=== PATIENT | female | born 1960 | race Two or more races ===

== ENCOUNTER 2019-02-07 03:56 | Inpatient (IN) | payer MEDICARE, OTHER ==
[~2019-02-07] VITALS: Ht 167.6 cm; Wt 108.4 kg
[2019-02-07 08:00] VITALS: BP 121/79
--- NOTE | 2019-02-07 08:35 | NUR ---
MEDIA SERVICES COORDINATOR NOTE: RECEIVED PATIENT FROM [facility] TRANSPORTED BY [facility] WITH 2 HEALTH INFORMATION SPECIALIST AND A RT. PATIENT WAS TRANSPORTED VIA GURNEY AND WAS TRANSFERRED TO THE BED IN ROOM 105. PATIENT WAS AWAKE, ALERT AND ABLE TO EXPRESS HERSELF BY WRITING AND ABLE TO MOUTH WORDS. ON CHRONIC VENT-TRACH DEPENDENT WITH THE VENT SETTING SHILEY XLT #8 AC 12 TV 450 FIO2 40% PEEP 5. PATIENT WAS SATURATING 98-100% WITH CURRENT VENT SETTING AND WAS TOLERATING IT WELL. BEDSIDE REPORT WAS GIVEN BY THE EMT. PATIENT'S PAPERWORK WAS HANDED TO THE ANIMAL CARE PROVIDER. INTRODUCED SELF. ATTACHED PATIENT TO MEDICAL PROGRAM SPECIALIST SR HR= 89. (L) FOREARM 20G IV SITE NOTED PATENT AND INTACT. HOB ELEVATED. BED ALARMED AND LOCKED AT ALL TIMES. PATIENT WAS GIVEN A PEN AND PAPER WITH CLIPBOARD FOR COMMUNICATION. PATIENT WROTE "I NEED PAIN MEDICATION FOR MY MIGRAINE." PATIENT LISTED HER MEDICATION LISTS FROM THE [facility]. PATIENT WAS INFORMED THAT DR. Kentrell PELLETIER WILL BE THE ADMITTING PHYSICIAN FOR HER TODAY AND WILL BE INFORM ABOUT HER HOME MEDICATIONS. COMPLETE BODY ASSESSMENT WAS DONE. SKIN INTACT AND WARM TO TOUCH. AFEBRILE. SHE WAS ABLE TO MOVE FROM SIDE TO SIDE. SHE ALSO USED THE BEDPAN. CALL LIGHT WAS PROVIDED WITHIN REACH AND SHE WAS EDUCATED HOW TO USE IT. NEEDS ANTICIPATED. V/S WAS TAKEN. CALLED AND PAGED EPIC EXCHANGE TO INFORM DR. Kentrell PELLETIER ABOUT THE DIRECT ADMISSION. AWAITING FOR ADMISSION ORDERS. PATIENT WROTE ON THE PAPER THAT SHE DOES NOT HAVE ANY ALLERGY TO MEDICATION OR FOOD. PHARMACIST WAS MADE AWARE OF IT.
--- NOTE | 2019-02-07 08:45 | NUR ---
RN NOTE: PATIENT'S TRACH SITE WAS NOTED WITH A SMALL AMOUNT OF RED BLOOD AND CLOTS. TRACH CARE WAS RENDERED WITH STERILE TECHNIQUE. AND DRESSING CHANGE WAS DONE.
[2019-02-07] MEDS ORDERED: AMLO2.5T2 PO (08:58)
[2019-02-07] MEDS ORDERED: MULT1TAB73 PO (08:58)
[2019-02-07] MEDS ORDERED: INSU100V39 SQ (08:58)
[2019-02-07] MEDS ORDERED: CHLO473M3 MM (08:58)
[2019-02-07] MEDS ORDERED: ASCO500T9 PO (08:58)
[2019-02-07] MEDS ORDERED: ASPI1TAB2 PO (08:58)
[2019-02-07] MEDS ORDERED: METH10TA2 PO (08:58)
[2019-02-07] MEDS ORDERED: ONDA4TAB11 PO (08:58)
[2019-02-07] MEDS ORDERED: CLON0.1T PO (08:58)
[2019-02-07] MEDS ORDERED: IPRA3AMP23 IH (08:58)
[2019-02-07] MEDS ORDERED: PRAZ1CAP2 PO (08:58)
[2019-02-07] MEDS ORDERED: FERR325T23 PO (08:58)
[2019-02-07] MEDS ORDERED: MAG30ORA PO (08:58)
[2019-02-07] MEDS ORDERED: ZOLP10TA2 PO (08:58)
[2019-02-07] MEDS ORDERED: BISA10SU11 RC (08:58)
[2019-02-07] MEDS ORDERED: BUDE0.5A IH (08:58)
[2019-02-07] MEDS ORDERED: NA P133E RC (08:58)
[2019-02-07] MEDS ORDERED: FAMO20TA8 PO (08:58)
[2019-02-07] MEDS ORDERED: SACC250C PO (08:58)
[2019-02-07] MEDS ORDERED: MAGN400O6 PO (08:58)
[2019-02-07] MEDS ORDERED: LOPE2TAB25 PO (08:58)
[2019-02-07] MEDS ORDERED: GUAI100S9 PO (08:58)
[2019-02-07] MEDS ORDERED: TYL2T MC (08:58)
[2019-02-07] MEDS ORDERED: LIDO30CR TP (08:58)
[2019-02-07] MEDS ORDERED: PANT40TA4 PO (08:58)
[2019-02-07] MEDS ORDERED: POLY17PO4 PO (08:58)
[2019-02-07] MEDS ORDERED: HEPA1DIS12 IJ (08:58)
[2019-02-07] MEDS ORDERED: PSYL0.525 PO (08:58)
[2019-02-07] MEDS ORDERED: SIME80TA15 PO (08:58)
[2019-02-07] MEDS ORDERED: HYDR-4384 PO (08:58)
[2019-02-07] MEDS ORDERED: CHOL200026 PO (08:58)
[2019-02-07] MEDS ORDERED: IBUP-1953 PO (08:58)
[2019-02-07 09:00] VITALS: BP 121/79
[2019-02-07] MEDS ORDERED: HYDROCODONE/APAP 5/325MG 1 EACH TABLET PO PRN (10:30)
[2019-02-07] MEDS ORDERED: MAG HYDROX/AL HYDROX/SIMETH 30 ML UDC PO PRN (10:30)
[2019-02-07] MEDS ORDERED: ONDANSETRON HCL/PF 4 MG/2 ML VIAL IVP PRN (10:30)
[2019-02-07 10:38] LABS: ABG BASE EXCESS 4.8 mmol/L; ABG OXYGEN SATURATION 95.8 % (92.0-98.5); ABG PCO2 68.7 mmHg (35.0-45.0); ABG PH 7.297 (7.350-7.450); ABG PO2 84.7 mmHg (75.0-100.0); AaDO2 121.5 mmHg; COHb 0.1 % (0.5-1.5); MetHb 0.5 % (0.0-1.5); O2Hb 95.2 % (94.0-97.0); PEEP,BG 5 cm H2O; SITE, ABG Left Radial; VT, ABG 450 mL
--- NOTE | 2019-02-07 10:45 | NUR ---
RN NOTE: PATIENT'S ABG RESULT WAS REPORTED TO DR. VANEGAS BY RT. DR. GUILHERME PULIDO WITH VENT CHANGES ORDER TO CHANGE TIDAL VOLUME FROM 450 TO 500. ORDER NOTED AND CARRIED OUT. PATIENT AWARE.
[2019-02-07] MEDS ORDERED: INSULIN REGULAR, HUMAN 100 UNIT/ML 3 ML VIAL SQ PRN (11:00)
[2019-02-07] MEDS ORDERED: CLONIDINE HCL 0.1 MG TABLET PO PRN (11:00)
[2019-02-07] MEDS ORDERED: GUAIFENESIN 300 MG/15 ML UDC PO PRN (11:00)
[2019-02-07] MEDS ORDERED: SIMETHICONE 80 MG TAB.CHEW PO PRN (11:00)
[2019-02-07] MEDS ORDERED: NA PHOS,M-B/NA PHOS,DI-BA 1 EA ENEMA RC PRN (11:00)
[2019-02-07] MEDS ORDERED: DEXTROSE 50%-WATER 50 ML DISP.SYRIN IV PRN (11:00)
[2019-02-07] MEDS ORDERED: BISACODYL SUPP (10 MG) 10 MG/SUPP.RECT SUPP.RECT RC PRN (11:00)
[2019-02-07] MEDS: IPRATROPIUM NEB FS 0.5 MG/2.5 ML AMPUL.NEB NEB SCH ×4 (11:02→22:46)
[2019-02-07] MEDS: ALBUTEROL HALF STRENGTH 1.25 MG/3 ML VIAL.NEB NEB SCH ×4 (11:02→22:46)
[2019-02-07] MEDS: IV NS 0.9% 1,000 ML IV PRN (11:02)
[2019-02-07] MEDS: CHLORHEXIDINE GLUCONATE 15 ML UDC MM SCH ×2 (11:12→20:11)
[2019-02-07] MEDS: CHOLECALCIFEROL 1,000 UNIT TABLET (VIT D3) PO SCH (11:12)
[2019-02-07] MEDS: MORPHINE SULFATE INJ 2 MG/ML DISP.SYRIN IV PRN ×2 (11:20→20:13)
[2019-02-07] MEDS ORDERED: LOPERAMIDE HCL (2 MG CAP) 2 MG CAPSULE PO PRN (11:30)
[2019-02-07 11:54] LABS: CALCIUM, SERUM 8.9 mg/dL (8.5-10.1); CREATININE 0.9 mg/dL (0.6-1.3); POTASSIUM 4.6 mmol/L (3.5-5.1)
[2019-02-07 11:56] LABS: BASOPHILS % (AUTO) 0.5 % (0.0-2.0); EOSINOPHILS % (AUTO) 2.1 % (0.0-6.0); HEMATOCRIT 33 % (33-45); HEMOGLOBIN 10.7 g/dL (11.5-14.8); LYMPHOCYTES # (AUTO) 0.9 /CMM (0.8-4.8); LYMPHOCYTES % (AUTO) 10.2 % (20.0-44.0); MEAN CORPUSCULAR HGB CONC 32 g/dl (31.0-36.0); MEAN CORPUSCULAR VOLUME 87 fL (82-100); MONOCYTES # (AUTO) 0.6 /CMM (0.1-1.30); MONOCYTES % (AUTO) 6.4 % (2.0-12.0); NEUTROPHILS # (AUTO) 7.4 /CMM (1.8-8.9); NEUTROPHILS % (AUTO) 80.8 % (43.0-81.0); PLATELET COUNT (AUTO) 216 /CMM (150-450); RED BLOOD CELL COUNT(AUTO) 3.85 MIL/uL (4.0-5.2); WHITE BLOOD COUNT (AUTO) 9.2 K/uL (4.3-11.0)
[2019-02-07 12:00] VITALS: BP 149/93
[2019-02-07] MEDS: BLOOD SUGAR DIAGNOSTIC 1 EACH STRIP IN SCH ×3 (12:24→22:02)
[2019-02-07] MEDS ORDERED: FEE PK DOSING 1 MIN EA MC ONE (12:26)
[2019-02-07] MEDS: CEFEPIME 2 GM in IV NS 0.9% 50 ML IV SCH ×2 (14:13→21:49)
[2019-02-07] MEDS: ALPRAZOLAM 1 MG TABLET PO PRN ×2 (14:36→21:16)
[2019-02-07] MEDS: VANCOMYCIN 1.25 GM in IV D5W 500 ML IV SCH (15:28)
[2019-02-07 16:00] VITALS: BP 140/74
[2019-02-07] MEDS: LACTOBACILLUS RHAMNOSUS GG 1 EACH CAP.SPRINK PO SCH (17:12)
[2019-02-07] MEDS: DOCUSATE SODIUM 100 MG CAPSULE PO SCH (17:12)
[2019-02-07] MEDS: FAMOTIDINE (20 MG) 20 MG TABLET PO SCH (17:12)
--- NOTE | 2019-02-07 17:46 | NUR ---
RN NOTE: REYNA, TRAVEL ATTENDANTS WAS INFORMED THAT ACCORDING TO THE PATIENT, SHE ONLY HAVE HER MOTHER URBANO MATHIS HER PRIMARY FAMILY MEMBER THAT CAN BE REACH REGARDING HER CARE. MOTHER'S TELEPHONE #: [phone]. ACCORDING TO THE PATIENT SHE TEXTED HER MOTHER THAT SHE WAS AT [facility].
--- NOTE | 2019-02-07 19:20 | NUR ---
FLAVIA RN OPENING NOTES RECEIVED PATIENT IN BED, AWAKE, A/OX4, ABLE TO MAKE NEEDS KNOWN VIA HANDWRITING, PAPER AND PENCIL AT BEDSIDE. ON MECHANICAL VENT TRACH SETTINGS ORDERED, TOLERATING WELL, NO SOB OR RESPIRATORY DISTRESS NOTED. RT AT BEDSIDE. PATIENT C/O OF GENERALIZED PAIN, WILL ADMINISTER PRN PAIN MEDICATIONS ORDERED. ON TELE MONITOR SINUS RHYTHM WITH HR 60S. IV ACCES NOTED ON LEFT FA 20G, DRESSING INTACT AND FLUSHES WELL. WITH ONGOING IVF OF NS AT 75CC/HR, NO INFILTRATION NOTED. PATIENT ENCOURAGED TO CALL FOR HELP AND ASSISTANCE. SAFETY MEASURES OBSERVED AND MAINTAINED; HOB ELEVATED, SIDE RAILS UP X2, BED LOW AND LOCKED POSITION, CALL LIGHT WITHIN REACH, BED ALARM ON. WILL CONT TO MONITOR PT CLOSELY.
--- NOTE | 2019-02-07 19:45 | NUR ---
RN NOTE: BEDSIDE REPORT WAS GIVEN TO PM SHIFT NURSE FOR CONTINUITY OF CARE. ENDORSED THAT PENDING EVALUATION FROM DR. SANDOVAL (PAIN MGMT) REGARDING THE PATIENT'S USE OF METHADONE FROM HOME. PATIENT REMAINED QUIET AND COOPERATIVE AT THIS TIME AND WAS NOTED ASLEEP IN HER BED SATURATING 100% ON THE CURRENT VENT SETTING.
[2019-02-07 20:00] VITALS: BP 134/77
[2019-02-07] MEDS: BUDESONIDE RESPULE INH 0.5 MG/2 ML AMPUL.NEB IH SCH (20:11)
[2019-02-07] MEDS: PRAZOSIN HCL 1 MG CAPSULE PO SCH (20:12)
--- NOTE | 2019-02-07 21:45 | NUR ---
FLAVIA RN NOTES PATIENT REQUESTING FOR AMBIEN FOR SLEEP, WILL ADMINISTER PRN MED PER REQUEST.
[2019-02-07] MEDS: ZOLPIDEM TARTRATE 5 MG TABLET PO PRN (21:49)
[2019-02-08] VITALS (7 sets, daily range): BP systolic 93–125; BP diastolic 62–71
[2019-02-08] MEDS: IV NS 0.9% 1,000 ML IV PRN (01:45)
[2019-02-08] MEDS: IPRATROPIUM NEB FS 0.5 MG/2.5 ML AMPUL.NEB NEB SCH ×6 (03:12→23:44)
[2019-02-08] MEDS: ALBUTEROL HALF STRENGTH 1.25 MG/3 ML VIAL.NEB NEB SCH ×6 (03:12→23:44)
--- NOTE | 2019-02-08 03:46 | NUR ---
PATIENT RECEIVED ON TRACH TO VENT WITH SETTINGS OF AC 12, 500 VT, 40%, +5. SUCTIONED WITH LAVAGE FOR MINIMAL, THIN, WHITE SECRETIONS. GIVEN IN-LINE TREATMENTS WITH NO ADVERSE REACTIONS. AMBU BAG AT BEDSIDE. VENT ALARM AUDIBLE AND VISIBLE. Addendum: 02/08/19 at 0347 by ANGELA ANDERSON RT Amended: Links added. Addendum: 02/08/19 at 0500 by ANGELA Garcia SULIT RT PATIENT SUCTIONED FOR MODERATE, THICK, RED SECRETIONS.
[2019-02-08] MEDS: VANCOMYCIN 1.25 GM in IV D5W 500 ML IV SCH ×2 (03:51→16:24)
[2019-02-08] MEDS: MORPHINE SULFATE INJ 2 MG/ML DISP.SYRIN IV PRN ×3 (04:01→17:25)
[2019-02-08] MEDS: ALPRAZOLAM 1 MG TABLET PO PRN ×2 (05:35→14:14)
[2019-02-08] MEDS: MAGNESIUM HYDROXIDE 30 ML UDC PO PRN ×2 (05:35→18:37)
[2019-02-08 06:22] LABS: BASOPHILS % (AUTO) 0.3 % (0.0-2.0); EOSINOPHILS % (AUTO) 4.4 % (0.0-6.0); HEMATOCRIT 31 % (33-45); HEMOGLOBIN 10.2 g/dL (11.5-14.8); LYMPHOCYTES # (AUTO) 0.7 /CMM (0.8-4.8); MEAN CORPUSCULAR HGB CONC 33 g/dl (31.0-36.0); MEAN CORPUSCULAR VOLUME 87 fL (82-100); MONOCYTES # (AUTO) 0.5 /CMM (0.1-1.30); MONOCYTES % (AUTO) 8.1 % (2.0-12.0); NEUTROPHILS # (AUTO) 4.3 /CMM (1.8-8.9); NEUTROPHILS % (AUTO) 75.2 % (43.0-81.0); PLATELET COUNT (AUTO) 177 /CMM (150-450); WHITE BLOOD COUNT (AUTO) 5.7 K/uL (4.3-11.0)
[2019-02-08 06:26] LABS: CALCIUM, SERUM 8.8 mg/dL (8.5-10.1); CREATININE 0.9 mg/dL (0.6-1.3); MAGNESIUM 1.9 mg/dL (1.8-2.4); POTASSIUM 3.6 mmol/L (3.5-5.1)
[2019-02-08 06:38] LABS: THYROID STIMULATING HORMONE 0.603 uIU/mL (0.358-3.74)
[2019-02-08] MEDS: CEFEPIME 2 GM in IV NS 0.9% 50 ML IV SCH (06:40)
--- NOTE | 2019-02-08 07:10 | NUR ---
FLAVIA RN CLOSING NOTES PATIENT IN BED, AWAKE, A/OX4, ABLE TO MAKE NEEDS KNOWN VIA HANDWRITING, PAPER AND PENCIL AT BEDSIDE. NO ACUTE CHANGES THROUGHOUT SHIFT. ON MECHANICAL VENT TRACH SETTINGS ORDERED, TOLERATING WELL, NO SOB OR RESPIRATORY DISTRESS NOTED. ON TELE MONITOR SINUS RHYTHM WITH HR 60S. IV ACCES NOTED ON LEFT FA 20G, DRESSING INTACT AND FLUSHES WELL. IVF RUNNING ORDERED, NO INFILTRATION NOTED. SAFETY MEASURES OBSERVED AND MAINTAINED; HOB ELEVATED, SIDE RAILS UP X2, BED LOW AND LOCKED POSITION, CALL LIGHT WITHIN REACH, BED ALARM ON. ENDORSED TO AM RN FOR NED.
[2019-02-08] MEDS: BLOOD SUGAR DIAGNOSTIC 1 EACH STRIP IN SCH ×2 (07:43→11:27)
--- NOTE | 2019-02-08 08:15 | NUR ---
received from shift superintendent. alert, follows commands, SR, on the vent, lungs partially congested, no edema, tolerates diet, diaper on, v/s stable, c/o abd pain morphine 4mg ivp given, asking for methadone, will follow up with MD, pt turns and repositions by herself.
[2019-02-08] MEDS: PRAZOSIN HCL 1 MG CAPSULE PO SCH ×2 (08:46→20:18)
[2019-02-08] MEDS: ASCORBIC ACID 500 MG TABLET PO SCH (08:46)
[2019-02-08] MEDS: FERROUS SULFATE (325 MG) 325 MG/TAB TABLET PO SCH (08:46)
[2019-02-08] MEDS: CHLORHEXIDINE GLUCONATE 15 ML UDC MM SCH ×2 (08:46→20:18)
[2019-02-08] MEDS: LACTOBACILLUS RHAMNOSUS GG 1 EACH CAP.SPRINK PO SCH ×2 (08:46→16:24)
[2019-02-08] MEDS: CHOLECALCIFEROL 1,000 UNIT TABLET (VIT D3) PO SCH (08:47)
[2019-02-08] MEDS: POLYETHYLENE GLYCOL 3350 17 GM POWD.PACK PO SCH (08:47)
[2019-02-08] MEDS: AMLODIPINE BESYLATE 2.5 MG TABLET PO SCH (08:47)
[2019-02-08] MEDS: DOCUSATE SODIUM 100 MG CAPSULE PO SCH ×2 (08:47→16:24)
[2019-02-08] MEDS: FAMOTIDINE (20 MG) 20 MG TABLET PO SCH ×2 (08:47→16:24)
[2019-02-08] MEDS: BUDESONIDE RESPULE INH 0.5 MG/2 ML AMPUL.NEB IH SCH ×2 (09:00→20:48)
--- NOTE | 2019-02-08 09:00 | NUR ---
RT PATIENT REC'D TRACHED ON [facility] VENT WITH ORDERED SETTINGS RADHA WELL. VENT ALARMS CHECKED + AUDIBLE. CUFF PRESSURE CHECKED GRANTS OFFICER. PATIENT SUCTIONED WITH SMALL AMT OD BLOOD TINGED SEMITHICK SECRETIONS. PATIENT AWAKE, RESPONSIVE, NO SOB NOTED. AMBU BAG AT [facility] Addendum: 02/08/19 at 0901 by AVTAR HARTMANN RT Amended: Links added.
[2019-02-08] MEDS ORDERED: METHADONE HCL 10 MG TABLET PO SCH (12:00)
[2019-02-08] MEDS: CEFEPIME 2 GM in IV D5W 100 ML IV SCH ×2 (13:54→22:06)
[2019-02-08] MEDS: ACETAMINOPHEN 325 MG TABLET PO PRN (15:06)
--- NOTE | 2019-02-08 16:12 | NUR ---
pt is resting in the bed, SR, a/o x4, v/s stable, no pain, pt cleaned and changed.
--- NOTE | 2019-02-08 19:10 | NUR ---
RN OPENING NOTES PATIENT IN BED, AWAKE, A/OX4, ABLE TO MAKE NEEDS KNOWN. ON MECHANICAL VENT TRACH SETTINGS ORDERED, TOLERATING WELL, NO SOB OR RESPIRATORY DISTRESS NOTED. C/O OF HEADACHE, WILL ADMINISTER PAIN MEDICATION ORDERED. ON TELE MONITOR SINUS RHYTHM WITH HR 80S. IV ACCESS NOTED ON LEFT WRIST 22G, DRESSING INTACT AND FLUSHES WELL. IVF RUNNING ORDERED, NO INFILTRATION NOTED. SAFETY MEASURES OBSERVED AND MAINTAINED; HOB ELEVATED, SIDE RAILS UP X2, BED LOW AND LOCKED POSITION, CALL LIGHT WITHIN REACH, BED ALARM ON. WILL CONT TO MONITOR PT CLOSELY.
--- NOTE | 2019-02-08 20:13 | NUR ---
PATIENT REC'D TRACHED ON [facility] VENT WITH NOTED SETTINGS RADHA WELL. VENT ALARMS CHECKED AND AUDIBLE. CUFF PRESSURE CHECKED DIALYSIS CLINICAL MANAGER. PATIENT SUCTIONED WITH SMALL AMT OF BLOOD TINGED THICK SECRETIONS. PATIENT AWAKE, RESPONSIVE, NO SOB NOTED. AMBU BAG AT HOB
[2019-02-08] MEDS: METHADONE HCL 10 MG TABLET PO SCH (20:18)
[2019-02-09] VITALS: BP 108/73
[2019-02-09] MEDS: IV NS 0.9% 1,000 ML IV PRN ×2 (00:40→19:15)
[2019-02-09] MEDS: ALPRAZOLAM 1 MG TABLET PO PRN ×4 (03:11→22:58)
[2019-02-09] MEDS: Z GUARD REMEDY 2 OZ OINT TP PRN ×2 (03:12→06:48)
[2019-02-09] MEDS: ACETAMINOPHEN 325 MG TABLET PO PRN ×4 (03:32→20:54)
[2019-02-09] MEDS: VANCOMYCIN 1.25 GM in IV D5W 500 ML IV SCH ×2 (03:32→15:44)
[2019-02-09] MEDS: IPRATROPIUM NEB FS 0.5 MG/2.5 ML AMPUL.NEB NEB SCH ×6 (03:34→23:25)
[2019-02-09] MEDS: ALBUTEROL HALF STRENGTH 1.25 MG/3 ML VIAL.NEB NEB SCH ×6 (03:34→23:24)
[2019-02-09 04:00] VITALS: BP 105/52
[2019-02-09] MEDS: MORPHINE SULFATE INJ 2 MG/ML DISP.SYRIN IV PRN ×3 (04:32→15:32)
[2019-02-09] MEDS: CEFEPIME 2 GM in IV D5W 100 ML IV SCH ×3 (06:02→22:53)
[2019-02-09 06:13] LABS: BASOPHILS % (AUTO) 0.1 % (0.0-2.0); EOSINOPHILS % (AUTO) 4.1 % (0.0-6.0); HEMATOCRIT 32 % (33-45); HEMOGLOBIN 10.5 g/dL (11.5-14.8); LYMPHOCYTES # (AUTO) 0.7 /CMM (0.8-4.8); MEAN CORPUSCULAR HGB CONC 32 g/dl (31.0-36.0); MEAN CORPUSCULAR VOLUME 87 fL (82-100); MONOCYTES # (AUTO) 0.6 /CMM (0.1-1.30); MONOCYTES % (AUTO) 7.8 % (2.0-12.0); NEUTROPHILS # (AUTO) 6.5 /CMM (1.8-8.9); PLATELET COUNT (AUTO) 192 /CMM (150-450); RED BLOOD CELL COUNT(AUTO) 3.74 MIL/uL (4.0-5.2); WHITE BLOOD COUNT (AUTO) 8.2 K/uL (4.3-11.0)
[2019-02-09 07:00] LABS: CALCIUM, SERUM 8.6 mg/dL (8.5-10.1); CREATININE 0.9 mg/dL (0.6-1.3); POTASSIUM 3.8 mmol/L (3.5-5.1)
--- NOTE | 2019-02-09 07:15 | NUR ---
FLAVIA RN CLOSING NOTES PATIENT IN BED, AWAKE, A/OX4, ABLE TO MAKE NEEDS KNOWN. ON MECHANICAL VENT TRACH SETTINGS ORDERED, TOLERATING WELL, NO SOB OR RESPIRATORY DISTRESS NOTED. ON TELE MONITOR SINUS RHYTHM WITH HR 70S. IV ACCESS NOTED ON LEFT WRIST 22G, DRESSING INTACT AND FLUSHES WELL. IVF RUNNING ORDERED, NO INFILTRATION NOTED. SAFETY MEASURES OBSERVED AND MAINTAINED; HOB ELEVATED, SIDE RAILS UP X2, BED LOW AND LOCKED POSITION, CALL LIGHT WITHIN REACH, BED ALARM ON. ALL MD ORDERS ATTENDED, ALL NEEDS ANTICIPATED AND MET. CHANGES DIAPER X5. ENDORSED TO AM RN FOR NED.
[2019-02-09] MEDS: METHADONE HCL 10 MG TABLET PO SCH ×3 (07:39→22:58)
[2019-02-09 07:42] LABS: MAGNESIUM 2.1 mg/dL (1.8-2.4); PHOSPHORUS 2.9 mg/dL (2.5-4.9)
[2019-02-09 08:00] VITALS: BP 116/76
[2019-02-09] MEDS: FERROUS SULFATE (325 MG) 325 MG/TAB TABLET PO SCH (09:00)
[2019-02-09] MEDS: LACTOBACILLUS RHAMNOSUS GG 1 EACH CAP.SPRINK PO SCH ×2 (09:00→17:18)
[2019-02-09] MEDS: CHOLECALCIFEROL 1,000 UNIT TABLET (VIT D3) PO SCH (09:00)
[2019-02-09] MEDS: PRAZOSIN HCL 1 MG CAPSULE PO SCH ×2 (09:00→21:10)
[2019-02-09] MEDS: ASCORBIC ACID 500 MG TABLET PO SCH (09:00)
[2019-02-09] MEDS: BUDESONIDE RESPULE INH 0.5 MG/2 ML AMPUL.NEB IH SCH ×2 (09:00→21:00)
[2019-02-09] MEDS: DOCUSATE SODIUM 100 MG CAPSULE PO SCH ×2 (09:00→17:00)
[2019-02-09] MEDS: CHLORHEXIDINE GLUCONATE 15 ML UDC MM SCH ×2 (10:03→20:54)
[2019-02-09] MEDS: FAMOTIDINE (20 MG) 20 MG TABLET PO SCH ×2 (10:04→17:18)
[2019-02-09] MEDS: POLYETHYLENE GLYCOL 3350 17 GM POWD.PACK PO SCH (10:08)
[2019-02-09] MEDS: AMLODIPINE BESYLATE 2.5 MG TABLET PO SCH (10:08)
[2019-02-09 11:13] LABS: ABG OXYGEN SATURATION 97.7 % (92.0-98.5); ABG PCO2 63.5 mmHg (35.0-45.0); ABG PH 7.349 (7.350-7.450); ABG PO2 109.7 mmHg (75.0-100.0); AaDO2 102.5 mmHg; COHb 0.1 % (0.5-1.5); MetHb 0.5 % (0.0-1.5); O2Hb 97.1 % (94.0-97.0); SITE, ABG Right Radial; VENT MODE, BG AC 12 500 40 +5
[2019-02-09 12:00] VITALS: BP_SYST 107; BP_DIAS 57; BP_DIAS 59
--- NOTE | 2019-02-09 12:00 | NUR ---
rn note spoke with dr salinas about pt co a lot of pain regardless pain management, he will see pt in the afternoon.
[2019-02-09 16:00] VITALS: BP 110/72
[2019-02-09] MEDS: ENSURE ENLIVE 237 ML LIQUID (VANILLA) PO SCH (17:51)
--- NOTE | 2019-02-09 18:22 | NUR ---
RT PT AWAKE ALERT TRACH INTACT AND SECURED ON MECH VENT RADHA ORDERED SETTING ALARMS ON AND AUDIBLE BAG AND MASK AT HOB TX RED TO BROWN THICK SECRETIONS TAKING TXS RADHA WELL NO ADVERSE REACTION NOTED ATT WILL CONT TO MONITOR
[2019-02-09 20:00] VITALS: BP 126/85
--- NOTE | 2019-02-09 20:00 | NUR ---
CLARIFIER OPERATOR HELPER NOTES PTS IN BED AWAKE ALERT X3 ABLE TO MOUTH WORD NEEDS , ON TELE SR ON THE MONITOR . NO SOB NO DISTRESS NOTED , PTS ON MECHANICAL VENTILATOR AC SETTING WELL TOLERATED .V/S STABLE AFEBRILE, DUE MEDS GIVEN ORDERED ALL NEEDS ATTENDED TOO. CALL LIGHT WITHIN REACH , KEPT PTS CLEAN DRY AND COMFORTABLE ,WILL CONTINUE TO MONITOR PTS.
--- NOTE | 2019-02-09 21:24 | NUR ---
RT NOTE PT RECEIVED TRACHED ON MECHANICAL VENTILATION. AMBU BAG/BACK UP TRACH @ BEDSIDE. VENT PLUGGED TO RED OUTLET. ALARMS ON AND AUDIBLE. CUFF CHECKED VIA FRESH MEAT GRADER. PT AWAKE/ALERT. TX GI GIVEN, NO ADVERSE REACTIONS NOTED. SX DONE, PINK TINGED SECRETIONS NOTED. LAVAGED WITH COLD SALINE. NO SOB NOTED. CONT. POX CONNECTED. WILL CONTINUE TO MONITOR T/O SHIFT. Addendum: 02/09/19 at 2126 by REYNALDO SCHUSTER RT Amended: Links added.
[2019-02-10] VITALS (9 sets, daily range): BP systolic 121–140; BP diastolic 80–99
[2019-02-10] MEDS: ZOLPIDEM TARTRATE 5 MG TABLET PO PRN (00:31)
[2019-02-10] MEDS: VANCOMYCIN 1.25 GM in IV D5W 500 ML IV SCH ×2 (03:25→15:59)
[2019-02-10] MEDS: IPRATROPIUM NEB FS 0.5 MG/2.5 ML AMPUL.NEB NEB SCH ×6 (03:55→22:59)
[2019-02-10] MEDS: ALBUTEROL HALF STRENGTH 1.25 MG/3 ML VIAL.NEB NEB SCH ×6 (03:55→22:59)
[2019-02-10] MEDS: ALPRAZOLAM 1 MG TABLET PO PRN ×4 (05:05→22:29)
[2019-02-10] MEDS: METHADONE HCL 10 MG TABLET PO SCH ×4 (05:06→22:29)
[2019-02-10] MEDS: CEFEPIME 2 GM in IV D5W 100 ML IV SCH ×3 (05:10→21:53)
[2019-02-10 06:29] LABS: BASOPHILS % (AUTO) 0.4 % (0.0-2.0); EOSINOPHILS % (AUTO) 7.3 % (0.0-6.0); HEMATOCRIT 29 % (33-45); HEMOGLOBIN 9.4 g/dL (11.5-14.8); LYMPHOCYTES # (AUTO) 0.9 /CMM (0.8-4.8); LYMPHOCYTES % (AUTO) 14.2 % (20.0-44.0); MEAN CORPUSCULAR HGB CONC 33 g/dl (31.0-36.0); MEAN CORPUSCULAR VOLUME 86 fL (82-100); MONOCYTES # (AUTO) 0.6 /CMM (0.1-1.30); NEUTROPHILS # (AUTO) 4.3 /CMM (1.8-8.9); NEUTROPHILS % (AUTO) 69.1 % (43.0-81.0); PLATELET COUNT (AUTO) 168 /CMM (150-450); RED BLOOD CELL COUNT(AUTO) 3.31 MIL/uL (4.0-5.2); WHITE BLOOD COUNT (AUTO) 6.3 K/uL (4.3-11.0)
[2019-02-10 06:40] LABS: CALCIUM, SERUM 8.6 mg/dL (8.5-10.1); CREATININE 0.8 mg/dL (0.6-1.3); POTASSIUM 3.5 mmol/L (3.5-5.1)
--- NOTE | 2019-02-10 07:00 | NUR ---
CARBON PAPER INTERLEAFER NOTES PTS IN BED AWAKE A/OX4 PTS REMAINS ON MECHANICAL VENTILATOR , ON TELE SR ON THE MONITOR , ALL NEEDS ATTENDED TOO CALL LIGHT WITHIN REACH , V/S STABLE AFEBRILE , WILL ENDORSE TO RN DAY SHIFT FOR CONTINUITY OF CARE.
[2019-02-10] MEDS: ACETAMINOPHEN 325 MG TABLET PO PRN ×3 (07:08→20:23)
[2019-02-10] MEDS: BUDESONIDE RESPULE INH 0.5 MG/2 ML AMPUL.NEB IH SCH ×2 (07:13→21:00)
--- NOTE | 2019-02-10 07:18 | NUR ---
RN INITIAL NOTE PATIENT IN BED AWAKE AND ALERTX4. ON MECH VENT SATING WELL AT 100%. COMMUNICATES USING A NOTEPAD AND A PEN. ON TELE MONITOR, SR. WAS COMPLAINING OF HEADACHE AND WAS ASKING FOR TYLENOL. NOC SHIFT RN ADMINISTERED TYLENOL. HAS LEFT WRIST #22 WITH NS AT 75 ML/HR. BED LOCKED AND IN LOW POSITION. CALL LIGHT WITHIN REACH. WILL CONT TO MONITOR
[2019-02-10] MEDS: POLYETHYLENE GLYCOL 3350 17 GM POWD.PACK PO SCH (08:23)
[2019-02-10] MEDS: PRAZOSIN HCL 1 MG CAPSULE PO SCH ×3 (08:23→21:00)
[2019-02-10] MEDS: CHLORHEXIDINE GLUCONATE 15 ML UDC MM SCH ×3 (08:23→21:54)
[2019-02-10] MEDS: LACTOBACILLUS RHAMNOSUS GG 1 EACH CAP.SPRINK PO SCH ×2 (08:24→16:02)
[2019-02-10] MEDS: FAMOTIDINE (20 MG) 20 MG TABLET PO SCH ×2 (08:24→16:02)
[2019-02-10] MEDS: CHOLECALCIFEROL 1,000 UNIT TABLET (VIT D3) PO SCH ×2 (08:24→08:58)
[2019-02-10] MEDS: DOCUSATE SODIUM 100 MG CAPSULE PO SCH ×2 (08:24→16:02)
[2019-02-10] MEDS: FERROUS SULFATE (325 MG) 325 MG/TAB TABLET PO SCH ×2 (08:24→08:57)
[2019-02-10] MEDS: ASCORBIC ACID 500 MG TABLET PO SCH ×2 (08:24→08:58)
[2019-02-10] MEDS: AMLODIPINE BESYLATE 2.5 MG TABLET PO SCH (08:25)
[2019-02-10] MEDS: MORPHINE SULFATE INJ 2 MG/ML DISP.SYRIN IV PRN ×2 (08:44→13:22)
[2019-02-10] MEDS: ENSURE ENLIVE 237 ML LIQUID (VANILLA) PO SCH ×3 (08:56→16:28)
--- NOTE | 2019-02-10 08:58 | NUR ---
RN NOTE PATIENT WAS COMPLAINING OF UNBEARABLE GENERALIZED PAIN. WAS GIVEN TYLENOL 4MG/2ML. ALSO, PATIENT REFUSED SOME OF HER MORNING MEDS - VIT C, VIT D, IRON, MINIPRES, AND CHLORHEXIDINE ORAL RINSE Addendum: 02/10/19 at 0918 by TELMA LOPEZ RN [facility] WAS TRYING TO WASTE THE MEDICATION BEC IT WAS ALREADY OPENED WHEN THE PT REFUSED. MEDICATION DISCARDED IN THE DRUG DISPOSAL IN MED ROOM
--- NOTE | 2019-02-10 09:55 | NUR ---
RN NOTE PATIENT HAS ONE EPISODE OF HEMOPTYSIS. WAS ASKED TO GET SUCTIONED. RED BLOOD SPUTUM NOTED. SATURATION 100%. CHARGE NURSE AT BEDSIDE. PATIENT INSISTING TO CALL RT TO CHECK ON HER. XANAX DUE AT 1100 TOGETHER WITH METHADONE. WILL LET AWARE.
[2019-02-10] MEDS: IV NS 0.9% 1,000 ML IV PRN (12:28)
[2019-02-10] MEDS ORDERED: HYDROMORPHONE 1 MG/1 ML DISP.SYRIN IV ONE (14:00)
[2019-02-10] MEDS ORDERED: HYDROMORPHONE INJ 0.5 MG/0.5 ML SYRINGE IV ONE (14:00)
--- NOTE | 2019-02-10 14:00 | NUR ---
RN NOTE Kentrell MANE AT BEDSIDE. WILL BE CHANGING MORPHINE TO DILAUDID 0.5 PER PATIENT'S PAIN LEVEL. PATIENT AWARE AND AGREES WITH THE PLAN. ALSO, AP AWARE ABOUT THE HEMOPTYSIS THIS AM
[2019-02-10] MEDS: HYDROMORPHONE 1 MG/1 ML DISP.SYRIN IV PRN ×2 (18:09→23:11)
--- NOTE | 2019-02-10 19:10 | NUR ---
RN CLOSING NOTE PATIENT IN BED, AWAKE AND ALERT. FREQUENTLY CALLING DUE TO PAIN AND WANTING PAIN MEDS. MD IS AWARE, CHANGED MORPHINE TO DILAUDID 1MG. POSSIBLE BRONCHOSCOPY ON TUESDAY IF HEMOPTYSIS DOES NOT SUBSIDE. HAD 2X BM. NO COMPLAINS OF ANY SOB AT THIS TIME, ON VENT SATURATING WELL AT 98%. BED LOCKED AND IN LOWEST POSITION. CALL LIGHT WITHIN REACH. ENDORSED TO NOC SHIFT FOR NED
--- NOTE | 2019-02-10 20:13 | NUR ---
LOAN ADMINISTRATOR NOTES RECEIVED PT ON BED. A/O X 4, VERY ANXIOUS AND RESTLESS.ON [facility] VENT SETTING TOLERATING WELL. IV ACCESS ON LEFT WRIST G22 WITH NS @ 75CC/HR RUNNING WELL. HEAD OF BED ELEVATED. SIDE RAILS UP. CALL LIGHT WITHIN REACH. BED ALARM ON. WILL CONTINUE TO MONITOR PT CLOSELY.
[2019-02-11] VITALS: BP 103/74
[2019-02-11] MEDS: PRAZOSIN HCL 1 MG CAPSULE PO SCH ×3 (00:47→21:20)
[2019-02-11] MEDS: ZOLPIDEM TARTRATE 5 MG TABLET PO PRN (00:48)
[2019-02-11] MEDS: HYDROMORPHONE 1 MG/1 ML DISP.SYRIN IV PRN ×4 (03:20→20:18)
[2019-02-11] MEDS: VANCOMYCIN 1.25 GM in IV D5W 500 ML IV SCH ×2 (03:20→17:14)
[2019-02-11] MEDS: IPRATROPIUM NEB FS 0.5 MG/2.5 ML AMPUL.NEB NEB SCH ×6 (03:30→23:45)
[2019-02-11] MEDS: ALBUTEROL HALF STRENGTH 1.25 MG/3 ML VIAL.NEB NEB SCH ×6 (03:30→23:45)
[2019-02-11 04:00] VITALS: BP 126/86
[2019-02-11] MEDS: ALPRAZOLAM 1 MG TABLET PO PRN ×4 (05:02→22:54)
[2019-02-11] MEDS: CEFEPIME 2 GM in IV D5W 100 ML IV SCH ×3 (05:03→21:20)
[2019-02-11] MEDS: METHADONE HCL 10 MG TABLET PO SCH ×4 (05:03→22:54)
[2019-02-11] MEDS: ACETAMINOPHEN 325 MG TABLET PO PRN ×2 (05:32→21:19)
--- NOTE | 2019-02-11 07:14 | NUR ---
PULPER OPERATOR NOTES NO ACUTE CHANGES NOTED DURING THE SHIFT. PT ANXIOUS AND RESTLESS. NO RESPIRATORY DISTRESS NOTED. PROVIDED COMFORT AND SAFETY. WILL ENDORSE TO THE AM NURSE FOR CONTINUITY OF CARE.
[2019-02-11 08:00] VITALS: BP 140/86
[2019-02-11] MEDS: BUDESONIDE RESPULE INH 0.5 MG/2 ML AMPUL.NEB IH SCH ×2 (08:00→22:08)
--- NOTE | 2019-02-11 08:00 | NUR ---
RN NOTES RECEIVED PATIENT IN BED, A/A/O X4, TRACH AND VENT DEPENDENT, TOLERATING CURRENT VENT SETTINGS, NOT ON ANY FORM OD DISTRESS, ABLE TO MAKE NEEDS KNOWN THROUGH MOUTHING WORDS OR WRITING, SINUS RHYTHM ON THE MONITOR WITH HR ON THE 77, WITH COMPLAINTS OF SEVERE HEADACHE, PATIENT PRN MEDS LAST GIVEN AT 0500AM, WILL ADMINISTER WHEN DUE. PATIENT SUCTIONED FOR AIRWAY PATENCY BUT NO SECRETION AT THIS TIME THOUGH SECRETION ON TUBINGS NOTED BROWN IN COLOR. WILL CONTINUE TO MONITOR. PATIENT ENCOURAGE TO CALL FOR HELP AND ASSISTANCE, TO VERBALIZE FEELINGS AND CONCERNS, SAFETY MEASURES OBSERVED AND MAINTAINED, CALL LIGHT PLACED WITHIN REACH, WILL CONTINUE TO MONITOR PATIENT AND ATTEND TO NEEDS
[2019-02-11 08:24] LABS: BASOPHILS % (AUTO) 0.2 % (0.0-2.0); EOSINOPHILS % (AUTO) 4.2 % (0.0-6.0); HEMATOCRIT 30 % (33-45); HEMOGLOBIN 9.8 g/dL (11.5-14.8); LYMPHOCYTES # (AUTO) 0.8 /CMM (0.8-4.8); LYMPHOCYTES % (AUTO) 11.5 % (20.0-44.0); MEAN CORPUSCULAR HGB CONC 33 g/dl (31.0-36.0); MEAN CORPUSCULAR VOLUME 87 fL (82-100); MONOCYTES # (AUTO) 0.5 /CMM (0.1-1.30); MONOCYTES % (AUTO) 7.3 % (2.0-12.0); NEUTROPHILS # (AUTO) 5.2 /CMM (1.8-8.9); NEUTROPHILS % (AUTO) 76.8 % (43.0-81.0); PLATELET COUNT (AUTO) 179 /CMM (150-450); RED BLOOD CELL COUNT(AUTO) 3.49 MIL/uL (4.0-5.2); WHITE BLOOD COUNT (AUTO) 6.7 K/uL (4.3-11.0)
[2019-02-11 08:57] LABS: CALCIUM, SERUM 8.6 mg/dL (8.5-10.1); CREATININE 0.8 mg/dL (0.6-1.3); POTASSIUM 4.1 mmol/L (3.5-5.1)
[2019-02-11] MEDS: AMLODIPINE BESYLATE 2.5 MG TABLET PO SCH (08:57)
[2019-02-11] MEDS: CHLORHEXIDINE GLUCONATE 15 ML UDC MM SCH ×2 (08:57→21:20)
[2019-02-11] MEDS: LACTOBACILLUS RHAMNOSUS GG 1 EACH CAP.SPRINK PO SCH ×2 (08:58→17:14)
[2019-02-11] MEDS: FAMOTIDINE (20 MG) 20 MG TABLET PO SCH ×2 (08:59→17:14)
[2019-02-11] MEDS: CHOLECALCIFEROL 1,000 UNIT TABLET (VIT D3) PO SCH (09:00)
[2019-02-11] MEDS: ASCORBIC ACID 500 MG TABLET PO SCH (09:00)
[2019-02-11] MEDS: FERROUS SULFATE (325 MG) 325 MG/TAB TABLET PO SCH (09:00)
[2019-02-11] MEDS: DOCUSATE SODIUM 100 MG CAPSULE PO SCH ×2 (09:00→17:00)
[2019-02-11] MEDS: POLYETHYLENE GLYCOL 3350 17 GM POWD.PACK PO SCH (09:00)
[2019-02-11] MEDS: ENSURE ENLIVE 237 ML LIQUID (VANILLA) PO SCH ×3 (09:09→17:16)
[2019-02-11 12:00] VITALS: BP 130/84
[2019-02-11] MEDS: IV NS 0.9% 1,000 ML IV PRN (14:13)
[2019-02-11 16:00] VITALS: BP 136/89
--- NOTE | 2019-02-11 19:10 | NUR ---
SMOKING PIPES CLEANER NOTE PATIENT IS RESTING WITH HOB ELEVATED, AOX3, ABLE TO MOUTH WORDS, TRACH TO VENT ON SETTINGS ORDERED, SKIN KEPT CLEAN AND DRY, RFA #22G PATENT FLUSHING WELL WITH NS AT 75 ML/HR, SAFETY MAINTAINED, BED IN LOW LOCKED POSITION, CALL LIGHT WITHIN REACH, WILL CONTINUE TO MONITOR FOR CHANGES.
--- NOTE | 2019-02-11 19:27 | NUR ---
RN NOTES ENDORSED FOR CONTINUITY OF CARE. NOT ON ANY FORM OF DISTRESS. ALL NURSING NEEDS ATTENDED AND MET. SAFETY MEASURES AND CALL LIGHT IN PLACE AT ALL TIMES
[2019-02-11 20:00] VITALS: BP 131/73
[2019-02-12] VITALS: BP 117/85
[2019-02-12] MEDS: ZOLPIDEM TARTRATE 5 MG TABLET PO PRN (00:11)
[2019-02-12] MEDS: IPRATROPIUM NEB FS 0.5 MG/2.5 ML AMPUL.NEB NEB SCH ×6 (03:01→23:30)
[2019-02-12] MEDS: ALBUTEROL HALF STRENGTH 1.25 MG/3 ML VIAL.NEB NEB SCH ×6 (03:01→23:30)
[2019-02-12] MEDS: HYDROMORPHONE 1 MG/1 ML DISP.SYRIN IV PRN ×4 (03:25→19:49)
[2019-02-12] MEDS: VANCOMYCIN 1.25 GM in IV D5W 500 ML IV SCH ×2 (03:28→16:09)
[2019-02-12 04:00] VITALS: BP 138/85
[2019-02-12] MEDS: ACETAMINOPHEN 325 MG TABLET PO PRN ×3 (04:14→22:02)
[2019-02-12] MEDS: METHADONE HCL 10 MG TABLET PO SCH ×4 (05:05→23:50)
[2019-02-12] MEDS: ALPRAZOLAM 1 MG TABLET PO PRN ×4 (05:05→23:50)
[2019-02-12] MEDS: CEFEPIME 2 GM in IV D5W 100 ML IV SCH ×3 (05:05→22:05)
--- NOTE | 2019-02-12 07:58 | NUR ---
INITIAL NOTES,AM RECEIVED BEDSIDE REPORT. PT VENT TO TRACH ON VENT SETTINGS ORDERED BY MD, NO DISTRESS NOTED. PT ALERT, AWAKE, FOLLOWS COMMANDS, MOUTHS WORDS AND MAKES NEEDS KNOWN. PT SINUS ON TELE. SKIN INTACT. ON SOFT DIET. PIV PATENT AND INTACT, NO S/S OF INFECTION OR INFILTRATION NOTED. ALL NEEDS WILL BE ATTENDED TO, SAFETY MEASURES TAKEN, BED IN LOW POSITION, SIDE RAILS UP, CALL LIGHT WITHIN REACH. WILL CONTINUE CARE.
[2019-02-12 08:00] VITALS: BP 133/76
[2019-02-12] MEDS: DOCUSATE SODIUM 100 MG CAPSULE PO SCH ×2 (08:34→16:09)
[2019-02-12] MEDS: CHLORHEXIDINE GLUCONATE 15 ML UDC MM SCH ×2 (08:34→21:42)
[2019-02-12] MEDS: PRAZOSIN HCL 1 MG CAPSULE PO SCH ×3 (08:34→21:46)
[2019-02-12] MEDS: FERROUS SULFATE (325 MG) 325 MG/TAB TABLET PO SCH ×2 (08:35→08:49)
[2019-02-12] MEDS: FAMOTIDINE (20 MG) 20 MG TABLET PO SCH ×2 (08:35→16:09)
[2019-02-12] MEDS: ENSURE ENLIVE 237 ML LIQUID (VANILLA) PO SCH ×3 (08:35→16:11)
[2019-02-12] MEDS: LACTOBACILLUS RHAMNOSUS GG 1 EACH CAP.SPRINK PO SCH ×2 (08:35→16:09)
[2019-02-12] MEDS: CHOLECALCIFEROL 1,000 UNIT TABLET (VIT D3) PO SCH ×2 (08:35→08:51)
[2019-02-12] MEDS: POLYETHYLENE GLYCOL 3350 17 GM POWD.PACK PO SCH (08:35)
[2019-02-12] MEDS: AMLODIPINE BESYLATE 2.5 MG TABLET PO SCH (08:37)
[2019-02-12] MEDS: ASCORBIC ACID 500 MG TABLET PO SCH (08:39)
[2019-02-12] MEDS: BUDESONIDE RESPULE INH 0.5 MG/2 ML AMPUL.NEB IH SCH ×2 (09:00→21:17)
[2019-02-12 11:05] LABS: CALCIUM, SERUM 8.8 mg/dL (8.5-10.1); CREATININE 0.9 mg/dL (0.6-1.3); POTASSIUM 3.7 mmol/L (3.5-5.1)
[2019-02-12] MEDS: IV NS 0.9% 1,000 ML IV PRN (11:23)
[2019-02-12 12:00] VITALS: BP 109/76
[2019-02-12 16:00] VITALS: BP 153/89
[2019-02-12] MEDS ORDERED: HYDROMORPHONE 1 MG/1 ML DISP.SYRIN IV ONE (16:00)
[2019-02-12] MEDS ORDERED: HYDROMORPHONE INJ 0.5 MG/0.5 ML SYRINGE IV ONE (16:00)
[2019-02-12] MEDS ORDERED: CEFE2PIG2 IV (16:55)
[2019-02-12] MEDS ORDERED: VANC1.2526 IV (16:55)
--- NOTE | 2019-02-12 17:00 | NUR ---
ICU/RN: ION PELLETIER, KAITLYNN AT BEDSIDE. PT ASSESSED. INFORMED HIM OF ALL PRN MEDS PATIENT IS DEMANDING. MEDICATIONS REVIEWED. ORDERS RECEIVED TO D/C PT. WILL FOLLOW THROUGH.
--- NOTE | 2019-02-12 19:22 | NUR ---
ICU/RN: ENDING NOTES,AM BEDSIDE REPORT ENDORSED TO NIGHT NURSE. PT ALERT, AWAKE, ANXIOUS. ON TRACH TO VENT WITH SETTINGS ORDERED BY MD, PT HAS DISCHARGE ORDERS. PIV PATENT AND INTACT, NO S/S OF INFECTION OR INFILTRATION NOTED, IVF INFUSING ORDERED. WILL FIND PLACEMENT IN AM. PT ON DIAPER, MULTIPLE BED BATHS GIVEN. ON SOFT DIET, REFUSED TO EAT, PROPERTY MANAGEMENT BOOKKEEPER AWARE. ALL NEEDS ATTENDED TO, SAFETY MEASURES TAKEN, BED IN LOW POSITION, SIDE RAILS UP, CALL LIGHT WITHIN REACH. WILL CONTINUE CARE.
--- NOTE | 2019-02-12 19:50 | NUR ---
LATEX THREAD MACHINE OPERATOR NOTE PT IN BED SITTING UP A/O X 3 MOUTH WORDS. C/O PAIN IN LOWER BACK 01/06, DILAUDID 1 MG IVP GIVEN. VENT/TRACH TOLERATING THE SETTINGS WELL. ON TELE SR HR 71. RT WRIST #22G SL INFUSING NS AT 75 ML/HR, NO S/S OF INFILTRATION NOTED. KEPT HER DRY AND CLEAN. ALL NEEDS ATTENDED. SIDE RAILS UP X 3 AND CALL LIGHT WITHIN REACH. CONTINUE TO MONITOR HER.
[2019-02-12 20:00] VITALS: BP 168/101
--- NOTE | 2019-02-12 21:23 | NUR ---
LIQUID CENTER ASSEMBLER NOTE REPORT GIVEN TO MINH FOR CONTINUE TO CARE.
--- NOTE | 2019-02-12 21:30 | NUR ---
VISE HAND OPENING NOTE RECEIVED PT FROM DOMINGO FREGOSO AROUND 2129. PATIENT IS IN BED SITTING UP A/O X 3. PATIENT IS ON VENT/TRACH TOLERATING THE SETTINGS WELL. ON TELE SR HR IN 70s. IV ON RT WRIST #22G SL INFUSING NS AT 75 ML/HR, NO S/S OF INFILTRATION NOTED. SIDE RAILS UP X 3 AND CALL LIGHT WITHIN REACH. WILL CONTINUE TO MONITOR THE PATIENT.
[2019-02-13] VITALS (7 sets, daily range): BP systolic 121–153; BP diastolic 66–98
[2019-02-13] MEDS: ZOLPIDEM TARTRATE 5 MG TABLET PO PRN (00:25)
[2019-02-13] MEDS: HYDROMORPHONE 1 MG/1 ML DISP.SYRIN IV PRN ×5 (01:00→19:53)
[2019-02-13] MEDS: IV NS 0.9% 1,000 ML IV PRN (02:36)
[2019-02-13] MEDS: VANCOMYCIN 1.25 GM in IV D5W 500 ML IV SCH (03:40)
[2019-02-13] MEDS: IPRATROPIUM NEB FS 0.5 MG/2.5 ML AMPUL.NEB NEB SCH ×6 (03:52→23:31)
[2019-02-13] MEDS: ALBUTEROL HALF STRENGTH 1.25 MG/3 ML VIAL.NEB NEB SCH ×6 (03:52→23:31)
[2019-02-13] MEDS: ACETAMINOPHEN 325 MG TABLET PO PRN (05:00)
[2019-02-13] MEDS: METHADONE HCL 10 MG TABLET PO SCH ×4 (05:50→23:11)
[2019-02-13] MEDS: ALPRAZOLAM 1 MG TABLET PO PRN ×3 (05:51→18:18)
[2019-02-13] MEDS: CEFEPIME 2 GM in IV D5W 100 ML IV SCH ×3 (06:08→21:04)
--- NOTE | 2019-02-13 06:44 | NUR ---
ENVIRONMENTAL LAWYER CLOSING NOTES, PATIENT IN BED ALERT, AWAKE. ON TRACH TO VENT WITH SETTINGS ORDERED BY MD. PIV PATENT AND INTACT, NO S/S OF INFECTION OR INFILTRATION NOTED, IVF INFUSING ORDERED NS 75 ML/HR. PT ON DIAPER, MULTIPLE DIAPER CHANGE DONE DURING GUITAR REPAIR TECHNICIAN. ON SOFT DIET. PAIN AND ANXIETY WAS CONTROLLED BY MEDS DURING THE WHOLE NIGHT. ALL NEEDS ATTENDED TOO, SAFETY MEASURES TAKEN, BED IN LOW POSITION, SIDE RAILS UP, CALL LIGHT WITHIN REACH. WILL ENDORSE THE PATIENT TO AM RN FOR NED.
--- NOTE | 2019-02-13 07:30 | NUR ---
RN NOTES RECEIVED PATIENT IN BED, ASLEEP BUT AWAKEN BY NOISE. O X4, TRACH AND VENT DEPENDENT, TOLERATING CURRENT VENT SETTINGS, NOT ON ANY FORM OD DISTRESS, SINUS RHYTHM ON THE MONITOR WITH HR AT 78. PATIENT SUCTIONED FOR AIRWAY PATENCY BUT NO SECRETION AT THIS TIME. IV ACCESS ON THE RFA G [address], DRESSING IN PLACE AND CLEAN , WITH ONGOING IVF OF NS AT 7CC/HR. PATIENT ENCOURAGE TO CALL FOR HELP AND ASSISTANCE, TO VERBALIZE FEELINGS AND CONCERNS, SAFETY MEASURES OBSERVED AND MAINTAINED, CALL LIGHT PLACED WITHIN REACH, WILL CONTINUE TO MONITOR PATIENT AND ATTEND TO NEEDS
[2019-02-13 07:40] LABS: CALCIUM, SERUM 8.6 mg/dL (8.5-10.1); CREATININE 0.9 mg/dL (0.6-1.3); POTASSIUM 3.8 mmol/L (3.5-5.1)
[2019-02-13] MEDS: BUDESONIDE RESPULE INH 0.5 MG/2 ML AMPUL.NEB IH SCH ×2 (08:45→21:00)
--- NOTE | 2019-02-13 08:45 | NUR ---
RT PT RECEIVED TRACH'D ON VENT WITH SETTINGS PER MD. PT AWAKE, ALERT AND RESPONSIVE. RESCUE INSTRUCTOR DONE. SPARE TRACH AND AMBU BAG AT BEDSIDE. VENT PLUGGED INTO RED OUTLET. ALARMS ON AND FUNCTIONING PROPERLY. TX'S GIVEN ORDERED. NO ADVERSE REACTIONS. SX'D AND MONITORED PRN. NO SOB NOTED THROUGHOUT SHIFT. WILL CONTINUE TO MONITOR FOR ANY CHANGES. Addendum: 02/14/19 at 0713 by DO JO RT Amended: Links added.
[2019-02-13] MEDS: CHOLECALCIFEROL 1,000 UNIT TABLET (VIT D3) PO SCH (09:00)
[2019-02-13] MEDS: CHLORHEXIDINE GLUCONATE 15 ML UDC MM SCH ×2 (09:00→20:22)
[2019-02-13] MEDS: ASCORBIC ACID 500 MG TABLET PO SCH (09:00)
[2019-02-13] MEDS: FERROUS SULFATE (325 MG) 325 MG/TAB TABLET PO SCH (09:00)
[2019-02-13] MEDS: PRAZOSIN HCL 1 MG CAPSULE PO SCH ×2 (09:00→20:22)
[2019-02-13] MEDS: DOCUSATE SODIUM 100 MG CAPSULE PO SCH ×2 (09:00→16:07)
[2019-02-13] MEDS: POLYETHYLENE GLYCOL 3350 17 GM POWD.PACK PO SCH (09:00)
[2019-02-13] MEDS: LACTOBACILLUS RHAMNOSUS GG 1 EACH CAP.SPRINK PO SCH ×2 (09:13→16:07)
[2019-02-13] MEDS: ENSURE ENLIVE 237 ML LIQUID (VANILLA) PO SCH ×3 (09:13→17:21)
[2019-02-13] MEDS: AMLODIPINE BESYLATE 2.5 MG TABLET PO SCH (09:14)
[2019-02-13] MEDS: FAMOTIDINE (20 MG) 20 MG TABLET PO SCH ×2 (09:14→16:07)
[2019-02-13] MEDS: VANCOMYCIN 1 GM in IV D5W 250 ML IV SCH (16:07)
--- NOTE | 2019-02-13 20:00 | NUR ---
POLE PEELER - NOTES - RECEIVED PATIENT IN BED, ASLEEP BUT AWAKEN BY NOISE. AO X4, TRACH AND VENT DEPENDENT, TOLERATING CURRENT VENT SETTINGS, NOT ON ANY FORM OD DISTRESS, SINUS RHYTHM ON THE MONITOR. PATIENT SUCTIONED FOR AIRWAY PATENCY BUT NO SECRETION AT THIS TIME. IV ACCESS ON THE L FA G [address], DRESSING IN PLACE AND CLEAN , WITH ONGOING IVF OF NS AT 7CC/HR. PATIENT ENCOURAGE TO CALL FOR HELP AND ASSISTANCE, TO VERBALIZE FEELINGS AND CONCERNS, SAFETY MEASURES OBSERVED AND MAINTAINED, CALL LIGHT PLACED WITHIN REACH, WILL CONTINUE TO MONITOR PATIENT AND ATTEND TO NEEDS
--- NOTE | 2019-02-13 20:50 | NUR ---
RECEIVED PT TRACHED ON VENT. AWAKE AND ALERT. NO DISTRESS NOTED. PT TOLERATING VENT SETTINGS. PT HAS SHLY 8XLT. VENT ALARMS SET AND AUDIBLE. AMBU BAG AT BEDSIDE. TRACH SECURE AND CLEAN. WILL CONTINUE TO MONITOR. Addendum: 02/13/19 at 2051 by RAJAT FREIRE RT Amended: Links added.
[2019-02-14] VITALS: BP 155/87
[2019-02-14] MEDS: ZOLPIDEM TARTRATE 5 MG TABLET PO PRN ×2 (00:10→21:01)
[2019-02-14] MEDS: HYDROMORPHONE 1 MG/1 ML DISP.SYRIN IV PRN ×6 (00:11→21:03)
[2019-02-14] MEDS: ALPRAZOLAM 1 MG TABLET PO PRN ×3 (00:27→21:02)
[2019-02-14] MEDS: IV NS 0.9% 1,000 ML IV PRN (01:54)
[2019-02-14] MEDS: VANCOMYCIN 1 GM in IV D5W 250 ML IV SCH ×2 (03:19→16:09)
[2019-02-14] MEDS: IPRATROPIUM NEB FS 0.5 MG/2.5 ML AMPUL.NEB NEB SCH ×6 (03:55→23:45)
[2019-02-14] MEDS: ALBUTEROL HALF STRENGTH 1.25 MG/3 ML VIAL.NEB NEB SCH ×6 (03:55→23:45)
[2019-02-14 04:00] VITALS: BP 129/80
[2019-02-14] MEDS: ACETAMINOPHEN 325 MG TABLET PO PRN ×3 (04:46→23:28)
[2019-02-14] MEDS: CEFEPIME 2 GM in IV D5W 100 ML IV SCH ×3 (05:24→21:03)
[2019-02-14] MEDS: METHADONE HCL 10 MG TABLET PO SCH ×4 (05:25→23:28)
--- NOTE | 2019-02-14 07:30 | NUR ---
RN NOTES RECEIVED PATIENT BACK FROM MULTILITH OPERATOR NURSE, NOT ON ANY FORM OF DISTRESS. NO INDICATION OF PAIN. SAFETY MEASURES OBSERVED AND MAINTAINED IN PLACE. CALL LIGHT WITHIN REACH, WILL CONTINUE TO MONITOR PATIENT CLOSELY AND ANTICIPATE NEEDS
[2019-02-14] MEDS: BUDESONIDE RESPULE INH 0.5 MG/2 ML AMPUL.NEB IH SCH ×2 (07:39→21:07)
[2019-02-14 08:00] VITALS: BP 116/70
[2019-02-14] MEDS: AMLODIPINE BESYLATE 2.5 MG TABLET PO SCH (08:40)
[2019-02-14] MEDS: FAMOTIDINE (20 MG) 20 MG TABLET PO SCH ×2 (08:40→16:46)
[2019-02-14] MEDS: CHLORHEXIDINE GLUCONATE 15 ML UDC MM SCH ×2 (08:40→21:02)
[2019-02-14] MEDS: LACTOBACILLUS RHAMNOSUS GG 1 EACH CAP.SPRINK PO SCH ×2 (08:40→16:46)
[2019-02-14] MEDS: DOCUSATE SODIUM 100 MG CAPSULE PO SCH ×3 (08:41→16:45)
[2019-02-14] MEDS: FERROUS SULFATE (325 MG) 325 MG/TAB TABLET PO SCH (08:41)
[2019-02-14] MEDS: ENSURE ENLIVE 237 ML LIQUID (VANILLA) PO SCH ×3 (08:41→18:04)
[2019-02-14] MEDS: PRAZOSIN HCL 1 MG CAPSULE PO SCH ×2 (08:41→21:02)
[2019-02-14] MEDS: ASCORBIC ACID 500 MG TABLET PO SCH (08:42)
[2019-02-14] MEDS: POLYETHYLENE GLYCOL 3350 17 GM POWD.PACK PO SCH (08:42)
[2019-02-14] MEDS: CHOLECALCIFEROL 1,000 UNIT TABLET (VIT D3) PO SCH (08:42)
[2019-02-14 08:48] LABS: CALCIUM, SERUM 8.6 mg/dL (8.5-10.1); CREATININE 0.9 mg/dL (0.6-1.3); POTASSIUM 3.2 mmol/L (3.5-5.1)
[2019-02-14] MEDS: POTASSIUM CHLORIDE 20 MEQ TAB.PRT.SR PO SCH ×2 (11:51→12:18)
[2019-02-14 12:00] VITALS: BP_SYST 143; BP_DIAS 90; BP_DIAS 95
[2019-02-14 16:00] VITALS: BP 102/75
--- NOTE | 2019-02-14 19:37 | NUR ---
RN NOTES ENDORSED PATIENT FOR CONTINUITY OF CARE. NOT ANY FORM OF DISTRESS. ALL NURSING NEEDS ATTENDED AND MET. SAFETY MEASURES IN PLACE. CALL LIGHT WITHIN REACH
[2019-02-14 20:00] VITALS: BP_SYST 134; BP_SYST 138; BP_DIAS 87
--- NOTE | 2019-02-14 20:00 | NUR ---
MONEY COUNTER INITIAL NOTE PATIENT IS IN BED SITTING UP A/O X 3. PATIENT IS ON VENT/TRACH TOLERATING THE SETTINGS WELL. ON TELE SR HR IN 90s. IV ON RT WRIST #22G SL INFUSING NS AT 75 ML/HR, NO S/S OF INFILTRATION NOTED, DEMANDING FOR ROUTINE MED'S SCHEDULED FOR 2300, EXPLAINED MED'S TIME AND A/R. SIDE RAILS UP X 3 AND CALL LIGHT WITHIN REACH. WILL CONTINUE TO MONITOR THE PATIENT.
[2019-02-15] VITALS: BP 115/80
[2019-02-15] MEDS: IV NS 0.9% 1,000 ML IV PRN (02:47)
[2019-02-15] MEDS: IPRATROPIUM NEB FS 0.5 MG/2.5 ML AMPUL.NEB NEB SCH ×6 (03:30→23:30)
[2019-02-15] MEDS: ALBUTEROL HALF STRENGTH 1.25 MG/3 ML VIAL.NEB NEB SCH ×6 (03:30→23:30)
[2019-02-15 04:00] VITALS: BP 127/71
[2019-02-15] MEDS: HYDROMORPHONE 1 MG/1 ML DISP.SYRIN IV PRN ×6 (04:35→21:45)
[2019-02-15] MEDS: VANCOMYCIN 1 GM in IV D5W 250 ML IV SCH ×2 (04:37→16:00)
--- NOTE | 2019-02-15 04:52 | NUR ---
pt rec'd trached on [facility] vent on ac mode. no resp distress or sob noted. trach is patent and secured. pt awake and alert. sx'd for small amt of pale yellow secretions. alarms are set and audible. vent plugged into red outlet. ambu bag bedside. Addendum: 02/15/19 at 0454 by JACKIE CARRERO RT Amended: Links added.
[2019-02-15] MEDS: METHADONE HCL 10 MG TABLET PO SCH ×4 (05:29→23:13)
[2019-02-15] MEDS: ALPRAZOLAM 1 MG TABLET PO PRN ×4 (05:41→23:13)
[2019-02-15] MEDS: CEFEPIME 2 GM in IV D5W 100 ML IV SCH ×3 (06:04→21:32)
--- NOTE | 2019-02-15 06:17 | NUR ---
SET UP / OPERATOR CLOSING NOTE PATIENT IS IN BED SITTING UP A/O X 3. PATIENT IS ON VENT/TRACH TOLERATING THE SETTINGS WELL. ON TELE SR HR IN 90s. IV ON RT WRIST #22G SL INFUSING NS AT 75 ML/HR, NO S/S OF INFILTRATION NOTED, DEMANDING FOR ROUTINE MED'S SCHEDULED FOR 2300, EXPLAINED MED'S TIME AND A/R. SIDE RAILS UP X 3 AND CALL LIGHT WITHIN REACH. WILL CONTINUE TO MONITOR THE PATIENT.
[2019-02-15 06:44] LABS: CREATININE 0.9 mg/dL (0.6-1.3); POTASSIUM 3.9 mmol/L (3.5-5.1)
--- NOTE | 2019-02-15 07:12 | NUR ---
MONOGRAM TECHNICIAN OPENING NOTE RECEIVED REPORT FROM [facility] SHIFT NURSE. PATIENT IS ASLEEP IN BED, ON VENT/TRACH TOLERATING THE SETTINGS WELL. ON TIP INSERTER-SINUS RHYTHM. IV ON RIGHT WRIST #22G INFUSING NS AT 75 ML/HR, NO S/S OF INFILTRATION NOTED. BED IN LOW POSITION, LOCKED, CALL LIGHT WITHIN REACH.
[2019-02-15 08:00] VITALS: BP 127/84
[2019-02-15] MEDS: CHLORHEXIDINE GLUCONATE 15 ML UDC MM SCH ×2 (08:00→20:18)
[2019-02-15] MEDS: FERROUS SULFATE (325 MG) 325 MG/TAB TABLET PO SCH (08:00)
[2019-02-15] MEDS: ASCORBIC ACID 500 MG TABLET PO SCH (08:00)
[2019-02-15] MEDS: CHOLECALCIFEROL 1,000 UNIT TABLET (VIT D3) PO SCH (08:00)
[2019-02-15] MEDS: ACETAMINOPHEN 325 MG TABLET PO PRN ×3 (08:19→20:17)
[2019-02-15] MEDS: DOCUSATE SODIUM 100 MG CAPSULE PO SCH ×2 (08:36→17:51)
[2019-02-15] MEDS: PRAZOSIN HCL 1 MG CAPSULE PO SCH ×2 (08:36→20:18)
[2019-02-15] MEDS: LACTOBACILLUS RHAMNOSUS GG 1 EACH CAP.SPRINK PO SCH ×2 (08:36→17:50)
[2019-02-15] MEDS: FAMOTIDINE (20 MG) 20 MG TABLET PO SCH ×2 (08:36→17:51)
[2019-02-15] MEDS: AMLODIPINE BESYLATE 2.5 MG TABLET PO SCH (08:37)
[2019-02-15] MEDS: ENSURE ENLIVE 237 ML LIQUID (VANILLA) PO SCH ×3 (08:42→17:00)
[2019-02-15] MEDS: POLYETHYLENE GLYCOL 3350 17 GM POWD.PACK PO SCH (09:00)
[2019-02-15] MEDS: BUDESONIDE RESPULE INH 0.5 MG/2 ML AMPUL.NEB IH SCH ×2 (09:48→21:28)
[2019-02-15 12:00] VITALS: BP 134/85
[2019-02-15 16:00] VITALS: BP 118/69
--- NOTE | 2019-02-15 16:14 | NUR ---
PT REFUSED IV VANCOMYCIN, ALSO REFUSED IV NS INFUSION- STOPPED INFUSION OF NS.
--- NOTE | 2019-02-15 17:06 | NUR ---
LEFT FOREARM MIKAEL SITE G24 NO LONGER PATENT, IV REMOVED, DRESSING APPLIED. CHARGE NURSE SOON INSERTED NEW IV ON LEFT WRIST G22.
--- NOTE | 2019-02-15 17:13 | NUR ---
rt note pt rec'd trached on mech vent on ac mode. no resp distress or sob noted. trach is patent and secured. pt awake and alert. sx'd for small amt of pale yellow secretions. alarms are set and audible. vent plugged into red outlet. ambu bag bedside.
--- NOTE | 2019-02-15 18:20 | NUR ---
SAP PAYROLL CONSULTANT CLOSING NOTE PT AWAKE AND ALERT IN BED, ABLE TO COMMUNICATE BY WRITING ON PAPER. TOLERATING VENT SETTING WELL. REPORTS PAIN IN HER LOWER BACK RATED A 9/10 THROUGHOUT SHIFT, WITH NO RELIEF WITH AROUND THE CLOCK PAIN MEDICATIONS. PROVIDED SAFETY AND COMFORT TO PT THROUGHOUT SHIFT. ALL DUE MEDS GIVEN. LEFT WRIST G22 INFUSING NS AT 75ML/HR, LINE IS PATENT, NO SIGNS OF INFILTRATION NOTED. PT AGREED TO RESUME IV FLUIDS. WILL ENDORSE TO NOC SHIFT NURSE.
--- NOTE | 2019-02-15 19:25 | NUR ---
TELE/RN NOTES PATIENT IN BED, AWAKE, WATCHING TV, NO S/S OF ACUTE DISTRESS NOTED, RESPIRATION EVEN AND UNLABORED. NO SOB NOTED. PATIENT A/O X 4, CONTINUE COMPLAINING OF LOWER BACK PAIN,. TRACH INTACT, PATENT CONNECTED TO VENT WITH PRESCRIBED SETTINGS. LEFT WRIST G22 INFUSING NS AT 75ML/HR, NO S/S OF INFECTION, INFILTRATION NOTED AT THE SITE. PATIENT ON TELE MONITORING WITH SR. SAFETY MAINTAINED, BED AT THE LOWEST LOCKED POSITION. CALL LIGHT WITHIN REACH. WILL CONTINUE TO MONITOR PER PLAN OF CARE.
[2019-02-15 20:00] VITALS: BP 130/71
[2019-02-16] VITALS: BP 134/70
[2019-02-16] MEDS: ZOLPIDEM TARTRATE 5 MG TABLET PO PRN (00:11)
--- NOTE | 2019-02-16 00:29 | NUR ---
PATIENT REFUSING ANY MORE IV FLUIDS, RISKS ANF BENEFITS EXPLAINED, PATIENT STILL REFUSED. WILL CONTINUE TO MONITOR
[2019-02-16] MEDS: HYDROMORPHONE 1 MG/1 ML DISP.SYRIN IV PRN ×3 (02:00→13:08)
[2019-02-16] MEDS: IPRATROPIUM NEB FS 0.5 MG/2.5 ML AMPUL.NEB NEB SCH ×3 (03:30→10:50)
[2019-02-16] MEDS: ALBUTEROL HALF STRENGTH 1.25 MG/3 ML VIAL.NEB NEB SCH ×3 (03:30→10:51)
[2019-02-16 04:00] VITALS: BP 138/84
[2019-02-16] MEDS: VANCOMYCIN 1 GM in IV D5W 250 ML IV SCH (04:20)
[2019-02-16] MEDS: METHADONE HCL 10 MG TABLET PO SCH ×2 (04:21→11:09)
[2019-02-16] MEDS: CEFEPIME 2 GM in IV D5W 100 ML IV SCH (05:23)
[2019-02-16] MEDS: ALPRAZOLAM 1 MG TABLET PO PRN ×2 (05:37→11:08)
[2019-02-16] MEDS: ACETAMINOPHEN 325 MG TABLET PO PRN (06:38)
--- NOTE | 2019-02-16 06:45 | NUR ---
TELE/RN NOTES PATIENT IN BED, RESTING COMFORTABLY AT THIS TIME, NO S/S OF ACUTE DISTRESS NOTED, RESPIRATION EVEN AND UNLABORED. NO SOB NOTED. CONTINUE COMPLAINING OF LOWER BACK PAIN 2/10 AT THIS TIME, EDUCATED PATIENT REGARDING NON-PHARMACOLOGICAL METHODS TO RELIEVE PAIN. ALL DUE, AND PRN MEDS GIVEN ORDERED. TRACH INTACT, PATENT CONNECTED TO VENT WITH PRESCRIBED SETTINGS. PATIENT CONTINUE TO REFUSE IV FLUIDS, RISKS AND BENEFITS EXPLAINED, WILL ENDORSE TO AM SHIFT NURSE TO FOLLOW UP. LEFT WRIST G22, SITE NOTED WITH NO S/S OF INFECTION, INFILTRATION . PATIENT ON TELE MONITORING WITH SR, SINUS SO. SAFETY MAINTAINED, BED AT THE LOWEST LOCKED POSITION. CALL LIGHT WITHIN REACH. WILL ENDORSE TO AM SHIFT NURSE FOR NED.
--- NOTE | 2019-02-16 07:05 | NUR ---
WOOD STOCK BLANK HANDLER OPENING RECEIVED PATIENT AWAKE, ALERT, A/OX4. NO ACUTE DISTRESS OR SOB NOTED, APPEARS TO TOLERATE CURRENT VENT SETTINGS. PULSE OX ATTACHED, ALARM AUDIBLE. TELE MONITOR ATTACHED, SINUS SO HR 56. L WRIST 22G IV SITE C/D/I, PATIENT REFUSING FLUIDS AT THIS TIME DESPITE EDUCATION ON RISKS. PATIENT DENIES NAUSEA AT THIS TIME, NO VOMITING NOTED. ASPIRATION PRECAUTIONS MAINTAINED AT ALL TIMES. DENIES NEED TO SUCTION AT THIS TIME. BED LOCKED, LOW, SIDE RAILS UPX2, CALL LIGHT WITHIN REACH. WILL CONT TO MONITOR
[2019-02-16 08:00] VITALS: BP 139/85
[2019-02-16] MEDS: CHOLECALCIFEROL 1,000 UNIT TABLET (VIT D3) PO SCH ×2 (08:11→08:46)
[2019-02-16] MEDS: CHLORHEXIDINE GLUCONATE 15 ML UDC MM SCH ×2 (08:12→08:45)
[2019-02-16] MEDS: POLYETHYLENE GLYCOL 3350 17 GM POWD.PACK PO SCH (08:12)
[2019-02-16] MEDS: PRAZOSIN HCL 1 MG CAPSULE PO SCH (08:12)
[2019-02-16] MEDS: ASCORBIC ACID 500 MG TABLET PO SCH ×2 (08:12→08:45)
[2019-02-16] MEDS: DOCUSATE SODIUM 100 MG CAPSULE PO SCH (08:12)
[2019-02-16] MEDS: BUDESONIDE RESPULE INH 0.5 MG/2 ML AMPUL.NEB IH SCH ×2 (08:12→08:45)
[2019-02-16] MEDS: FAMOTIDINE (20 MG) 20 MG TABLET PO SCH (08:12)
[2019-02-16] MEDS: AMLODIPINE BESYLATE 2.5 MG TABLET PO SCH (08:12)
[2019-02-16] MEDS: FERROUS SULFATE (325 MG) 325 MG/TAB TABLET PO SCH ×2 (08:13→08:45)
[2019-02-16] MEDS: LACTOBACILLUS RHAMNOSUS GG 1 EACH CAP.SPRINK PO SCH (08:13)
[2019-02-16 08:15] LABS: CALCIUM, SERUM 8.9 mg/dL (8.5-10.1); CREATININE 0.9 mg/dL (0.6-1.3); POTASSIUM 4.4 mmol/L (3.5-5.1)
[2019-02-16] MEDS: ENSURE ENLIVE 237 ML LIQUID (VANILLA) PO SCH (08:45)
[2019-02-16 12:00] VITALS: BP 137/87
--- NOTE | 2019-02-16 13:00 | NUR ---
RN D/C NOTE RECEIVED D/C ORDER FOR PT. TO SNF. D/C INSTRUCTIONS PROVIDED: FOLLOW UP W/ PULM, PAIN MANAGEMENT + CT SCAN. STABLE CONDITION. ALL ORDERED MEDS GIVEN. BELONGINGS CHECKLIST SIGNED, NO WOUND PICTURES TO BE TAKEN. IV REMOVED, CATHETER INTACT, NO S/S BLEEDING. REPORT GIVEN TO CEDRICIO
== END 2019-02-16 14:51 | DRG 207 ==
LOC: TELE-TD 08:17 → TELE1 02-09 09:34
PROVIDERS: ADMIT Hospitalist; ATTEND Internal Medicine
PROC: 5A1955Z Respiratory Ventilation, Greater than 96 Consecutive Hours (ICD-10-PCS; principal; 2019-02-07)
DX: J95.851 Ventilator associated pneumonia (principal); J96.21 Acute and chronic respiratory failure with hypoxia; J96.22 Acute and chronic respiratory failure with hypercapnia; J15.6 Pneumonia due to other Gram-negative bacteria; Z99.11 Dependence on respirator [ventilator] status; R04.2 Hemoptysis; J44.0 Chronic obstructive pulmonary disease with (acute) lower respiratory infection; G89.4 Chronic pain syndrome; F41.9 Anxiety disorder, unspecified; E66.01 Morbid (severe) obesity due to excess calories; Z68.38 Body mass index [BMI] 38.0-38.9, adult; I10 Essential (primary) hypertension; Z87.891 Personal history of nicotine dependence; Z93.0 Tracheostomy status; Z87.11 Personal history of peptic ulcer disease; Y83.3 Surgical operation with formation of external stoma as the cause of abnormal reaction of the patient, or of later complication, without mention of misadventure at the time of the procedure; Y72.8 Miscellaneous otorhinolaryngological devices associated with adverse incidents, not elsewhere classified; Y92.89 Other specified places as the place of occurrence of the external cause; Z85.3 Personal history of malignant neoplasm of breast; F32.9 Major depressive disorder, single episode, unspecified; Z79.891 Long term (current) use of opiate analgesic; K59.00 Constipation, unspecified; Z79.4 Long term (current) use of insulin; K27.9 Peptic ulcer, site unspecified, unspecified as acute or chronic, without hemorrhage or perforation; R59.0 Localized enlarged lymph nodes
CPT/HCPCS: 31720; 36415; 36600; 71045-TC; 74018; 80048-TC; 80061-TC; 80202-TC; 82803-TC; 82962-TC; 83735-TC; 84100-TC; 84443-TC; 85025-TC; 85730-TC; 87081-TC; 94002-TC; 94003-TC; 94760-TC; 94762-TC; 94799-TC; A4216; A4623; A7526; G0378; J0692; J1170; J1815; J2270; J2405; J3370; J7030; J7060

== ENCOUNTER 2019-06-10 20:41 | Inpatient (IN) | payer MEDICARE, OTHER ==
[~2019-06-10] VITALS: Ht 172.7 cm; Wt 105.7 kg
[~2019-06-10 20:41] MED LIST: AMLO2.5T2 PO; ASCO500T20 PO; ASPI1TAB2 PO; BISA10SU11 RC; BUDE0.5A IH; CHLO473M3 MM; CHOL200026 PO; CLON0.1T PO; FAMO20TA8 PO; FERR325T23 PO; GUAI100S9 PO; HEPA1DIS12 IJ; HYDR-4384 PO; IBUP-1953 PO; INSU100V39 SQ; IPRA3AMP23 IH; LIDO30CR TP; LOPE2TAB25 PO; MAG30ORA PO; MAGN400O6 PO; METH10TA2 PO; MULT1TAB73 PO; NA P133E RC; ONDA4TAB11 PO; PANT40TA4 PO; POLY17PO4 PO; PRAZ1CAP2 PO; PSYL0.525 PO; SACC250C PO; SIME80TA15 PO; TYL2T MC; ZOLP10TA2 PO
[2019-06-11] VITALS: BP 145/92
[2019-06-11] MEDS ORDERED: METHADONE HCL 10 MG TABLET PO PRN (01:00)
[2019-06-11] MEDS ORDERED: HYDROCODONE/APAP 5/325MG 1 EACH TABLET PO PRN (01:30)
[2019-06-11] MEDS ORDERED: ONDANSETRON HCL/PF 4 MG/2 ML VIAL IVP PRN (01:30)
[2019-06-11] MEDS ORDERED: Z GUARD REMEDY 2 OZ OINT TP PRN (01:30)
[2019-06-11] MEDS: LEVOFLOXACIN 500 MG /D5W 100ML 500 MG in PREMIX 1 EA IV SCH (02:00)
[2019-06-11] MEDS ORDERED: LEVOFLOXACIN 500 MG /D5W 100ML 500 MG in PREMIX 1 EA IV ONE (02:00)
[2019-06-11] MEDS ORDERED: LEVOFLOXACIN 500 MG /D5W 100ML 100 ML IV ONE (02:20)
[2019-06-11] MEDS: ZOLPIDEM TARTRATE 5 MG TABLET PO PRN (03:15)
[2019-06-11] MEDS: ALPRAZOLAM 1 MG TABLET PO PRN ×3 (03:15→14:55)
[2019-06-11] MEDS: IV NS 0.9% 1,000 ML IV PRN ×2 (03:21→14:55)
[2019-06-11] MEDS: ACETAMINOPHEN 325 MG TABLET PO PRN ×2 (06:30→12:54)
[2019-06-11 06:42] LABS: BASOPHILS % (AUTO) 0.1 % (0.0-2.0); EOSINOPHILS % (AUTO) 0.1 % (0.0-6.0); HEMATOCRIT 29 % (33-45); HEMOGLOBIN 9.1 g/dL (11.5-14.8); LYMPHOCYTES # (AUTO) 0.7 /CMM (0.8-4.8); LYMPHOCYTES % (AUTO) 5.6 % (20.0-44.0); MEAN CORPUSCULAR HGB CONC 32 g/dl (31.0-36.0); MEAN CORPUSCULAR VOLUME 85 fL (82-100); MONOCYTES # (AUTO) 1.7 /CMM (0.1-1.30); MONOCYTES % (AUTO) 13.3 % (2.0-12.0); NEUTROPHILS # (AUTO) 10.3 /CMM (1.8-8.9); NEUTROPHILS % (AUTO) 80.9 % (43.0-81.0); PLATELET COUNT (AUTO) 176 /CMM (150-450); RED BLOOD CELL COUNT(AUTO) 3.39 MIL/uL (4.0-5.2); WHITE BLOOD COUNT (AUTO) 12.7 K/uL (4.3-11.0)
[2019-06-11 06:57] LABS: CALCIUM, SERUM 9.4 mg/dL (8.5-10.1); CREATININE 1.6 mg/dL (0.6-1.3); MAGNESIUM 1.9 mg/dL (1.8-2.4); PHOSPHORUS 2.3 mg/dL (2.5-4.9); POTASSIUM 3.8 mmol/L (3.5-5.1)
[2019-06-11 07:03] VITALS: BP 141/88
--- NOTE | 2019-06-11 07:15 | NUR ---
rn notes Admitted patient from [facility], via ambulance on a wheelchair accompanied by three emt's with diagnosis of PNA. Patient is alert and oriented, but non verbal but able to mouthwords. Ventillator dependent. no distress noted. suctioned moderate amount of semi loose yellowish secretion. Complained of headache, tylenol given with help. requested ambien for sleep effective and xanax for anxiety. kept clean and dry. will endorse to next shift for continuity of care.
--- NOTE | 2019-06-11 07:30 | NUR ---
WATCH DIAL STONER OPENING NOTES RECEIVED PATIENT RESTING IN BED. PATIENT IS ALERT AND ORIENTED, NON VERBAL BUT IS ABLE TO MOUTH WORDS AND WRITE DOWN REQUESTS. PATIENT IS ON VENTILATOR, TOLERATING SETTINGS WELL, NO DISTRESS NOTED. PATIENT IS ON TELE MONITOR WITH SINUS RHYTHM AT 72BPM. IV ON RIGHT WRIST #20, PATENT, INTACT, AND FLUSHED WELL. SAFETY MAINTAINED, CALL LIGHT WITHIN REACH, WILL CONTINUE TO MONITOR.
[2019-06-11] MEDS: BUDESONIDE RESPULE INH 0.5 MG/2 ML AMPUL.NEB IH SCH ×2 (07:59→20:22)
[2019-06-11 08:00] VITALS: BP_SYST 115; BP_DIAS 85; BP_DIAS 87
[2019-06-11] MEDS: FERROUS SULFATE (325 MG) 325 MG/TAB TABLET PO SCH ×2 (09:00→09:17)
[2019-06-11] MEDS: FAMOTIDINE (20 MG) 20 MG TABLET PO SCH (09:15)
[2019-06-11] MEDS: ASCORBIC ACID 500 MG TABLET PO SCH (09:15)
[2019-06-11] MEDS: PRAZOSIN HCL 1 MG CAPSULE PO SCH ×2 (09:15→20:55)
[2019-06-11] MEDS: MULTIVITAMINS,THERAGRAN 1 UDTAB TABLET PO SCH (09:16)
[2019-06-11] MEDS: AMLODIPINE BESYLATE 2.5 MG TABLET PO SCH (09:17)
[2019-06-11] MEDS: CHOLECALCIFEROL 1,000 UNIT TABLET (VIT D3) PO SCH (09:17)
[2019-06-11] MEDS: CHLORHEXIDINE GLUCONATE 15 ML UDC MM SCH ×2 (09:17→20:31)
[2019-06-11] MEDS: PANTOPRAZOLE 40 MG TABLET.DR PO SCH (09:17)
[2019-06-11] MEDS: HEPARIN SODIUM, PORCINE 5000 UNITS/1 ML VIAL SQ SCH ×2 (09:19→20:34)
[2019-06-11] MEDS ORDERED: ALBUTEROL HALF STRENGTH 1.25 MG/3 ML VIAL.NEB NEB SCH (10:00)
--- NOTE | 2019-06-11 10:00 | NUR ---
DID NOT ADMINISTER FERROUS SULFATE TO PATIENT BECAUSE THEY HAVE REFUSED AFTER SEEING THE MEDICATION. EXPLAINED BENEFITS TO PATIENT, STILL DECIDED TO REFUSE. DID NOT ADMINISTER.
[2019-06-11 11:40] LABS: ABG BASE EXCESS 13.8 mmol/L; ABG OXYGEN SATURATION 97.8 % (92.0-98.5); ABG PCO2 63.2 mmHg (35.0-45.0); ABG PH 7.422 (7.350-7.450); ABG PO2 111.6 mmHg (75.0-100.0); AaDO2 100.9 mmHg; COHb 0.3 % (0.5-1.5); MetHb 0.1 % (0.0-1.5); O2Hb 97.4 % (94.0-97.0); PEEP,BG 5 cm H2O; SITE, ABG Right Radial; VT, ABG 500 mL
[2019-06-11] MEDS: IPRATROPIUM NEB FS 0.5 MG/2.5 ML AMPUL.NEB NEB SCH ×3 (11:44→20:22)
[2019-06-11] MEDS: ALBUTEROL HALF STRENGTH 1.25 MG/3 ML VIAL.NEB NEB SCH ×3 (11:44→20:22)
[2019-06-11 12:00] VITALS: BP 97/66
[2019-06-11] MEDS ORDERED: K PHOS NEUTRAL 250 MG TABLET PO ONE (14:00)
[2019-06-11 16:00] VITALS: BP 90/62
--- NOTE | 2019-06-11 17:07 | NUR ---
RT PT RECEIVED TRACH'D AND ON [facility] VENT W CHARTED SETTINGS. VENT IS PLUGGED INTO RED OUTLET W [facility] AND SPARE TRACH AT HOB. ALARMS ARE SET AND AUDIBLE. PT IS STABLE. NO RESPIRATORY DISTRESS NOTED T/O SHIFT. Addendum: 06/11/19 at 1727 by DRE SÁNCHEZ RT Amended: Links added.
--- NOTE | 2019-06-11 19:10 | NUR ---
RN OPENING NOTE RECEIVED PATIENT IN BED, WATCHING TV. HOB ELEVATED. ABLE TO MAKE NEEDS KNOWN VIA WRITING. BED IS LOWERED TO LOWEST POSITION FOR SAFETY. CALL LIGHT WITHIN REACH. WILL CONTINUE TO MONITOR.
--- NOTE | 2019-06-11 19:16 | NUR ---
COLOR TELEVISION CONSOLE MONITOR CLOSING NOTES NO ACUTE CHANGE TO PATIENT CONDITION DURING MY SHIFT. PATIENT IN STABLE CONDITION. ALL PATIENT NEEDS MET. PATIENT REMAINED ON TELE MONITOR WITH SR. IV INTACT, PATENT, AND FLUSHED WELL. SAFETY WAS MAINTAINED. CALL LIGHT WITHIN REACH. PATIENT ENDORSED TO PORTFOLIO ASSISTANT NURSE TO CONTINUE MONITORING.
[2019-06-11 20:00] VITALS: BP 107/68
[2019-06-12] VITALS (9 sets, daily range): BP systolic 101–120; BP diastolic 58–83
[2019-06-12] MEDS: IPRATROPIUM NEB FS 0.5 MG/2.5 ML AMPUL.NEB NEB SCH ×7 (00:17→23:30)
[2019-06-12] MEDS: ALBUTEROL HALF STRENGTH 1.25 MG/3 ML VIAL.NEB NEB SCH ×7 (00:17→23:30)
[2019-06-12] MEDS: ALPRAZOLAM 1 MG TABLET PO PRN ×3 (03:20→19:43)
--- NOTE | 2019-06-12 03:22 | NUR ---
TELE/RN NOTES: COVERING FOR ASHLEY MORALES PT IS AGITATED AND REQUESTED FOR XANAX. ADMINISTERED 1MG OF XANAX PO. TOLERATED WELL. PATIENT IN STABLE CONDITION. VS WNL. WILL ENDORSE TO ASHLEY MORALES.
[2019-06-12] MEDS: PANTOPRAZOLE 40 MG TABLET.DR PO SCH (06:06)
[2019-06-12 06:53] LABS: ALBUMIN 2.1 g/dL (3.4-5.0); BILIRUBIN,TOTAL 0.5 mg/dL (0.2-1.0); CALCIUM, SERUM 9.2 mg/dL (8.5-10.1); CREATININE 1.7 mg/dL (0.6-1.3); MAGNESIUM 1.8 mg/dL (1.8-2.4); PHOSPHORUS 1.3 mg/dL (2.5-4.9); POTASSIUM 3.5 mmol/L (3.5-5.1)
[2019-06-12 07:01] LABS: BASOPHILS % (AUTO) 0.3 % (0.0-2.0); EOSINOPHILS % (AUTO) 1.4 % (0.0-6.0); HEMATOCRIT 26 % (33-45); HEMOGLOBIN 8.5 g/dL (11.5-14.8); LYMPHOCYTES # (AUTO) 0.7 /CMM (0.8-4.8); LYMPHOCYTES % (AUTO) 9.4 % (20.0-44.0); MEAN CORPUSCULAR HGB CONC 33 g/dl (31.0-36.0); MEAN CORPUSCULAR VOLUME 84 fL (82-100); MONOCYTES # (AUTO) 0.8 /CMM (0.1-1.30); MONOCYTES % (AUTO) 10.8 % (2.0-12.0); NEUTROPHILS # (AUTO) 6.1 /CMM (1.8-8.9); NEUTROPHILS % (AUTO) 78.1 % (43.0-81.0); PLATELET COUNT (AUTO) 182 /CMM (150-450); WHITE BLOOD COUNT (AUTO) 7.9 K/uL (4.3-11.0)
--- NOTE | 2019-06-12 07:03 | NUR ---
RN CLOSING NOTE PATIENT IS IN BED RESTING, WATCHING TV. A&O X4. ABLE TO MAKE NEEDS KNOWN VIA WRITING. ON VENT AND TOLERATED WELL. ALL DUE MEDS GIVEN AND TOLERATED WELL. IN NO APPARENT DISTRESS NOTED AT THIS TIME. PATIENT IS KEPT CLEAN, DRY, AND COMFORTABLE. CALL LIGHT IS WITHIN EASY REACH. WILL ENDORSE TO AM SHIFT RN.
[2019-06-12] MEDS: BUDESONIDE RESPULE INH 0.5 MG/2 ML AMPUL.NEB IH SCH ×2 (07:24→20:05)
--- NOTE | 2019-06-12 07:30 | NUR ---
TELE RNOPENING NOTES RECEIVED PATIENT IN BED, ALERT AND ORIENTED X3, ABLE TO MAKE NEEDS KNOWN. PATIENT IS ON MECHANICAL VENTILATOR WITH SETTINGS ORDERED, NO S/S OF RESPIRATORY DISTRESS NOTED. PATIENT IS ABLE TO COMMUNICATE BY MOUTHING WORDS AND WRITING. ON TELE MONITOR, WITH SINUS RHYTHM NOTED AT 84BPM. VITAL SIGNS WITHIN NORMAL RANGE. IV ON RIGHT FOREARM, INTACT, PATENT, AND FLUSHED WELL. NO S/S OF INFECTION NOTED. SAFETY MAINTAINED, CALL LIGHT WITHIN REACH, WILL CONTINUE TO MONITOR.
[2019-06-12] MEDS: FERROUS SULFATE (325 MG) 325 MG/TAB TABLET PO SCH (09:00)
--- NOTE | 2019-06-12 09:30 | NUR ---
PATIENT REFUSED FERROUS SULFATE, EXPLAINED BENEFITS TO PATIENT. STILL DECIDED TO REFUSE MEDICATION.
[2019-06-12] MEDS: CHOLECALCIFEROL 1,000 UNIT TABLET (VIT D3) PO SCH (09:33)
[2019-06-12] MEDS: MULTIVITAMINS,THERAGRAN 1 UDTAB TABLET PO SCH (09:34)
[2019-06-12] MEDS: FAMOTIDINE (20 MG) 20 MG TABLET PO SCH (09:34)
[2019-06-12] MEDS: ASCORBIC ACID 500 MG TABLET PO SCH (09:34)
[2019-06-12] MEDS: AMLODIPINE BESYLATE 2.5 MG TABLET PO SCH (09:34)
[2019-06-12] MEDS: PRAZOSIN HCL 1 MG CAPSULE PO SCH ×2 (09:34→21:30)
[2019-06-12] MEDS: CHLORHEXIDINE GLUCONATE 15 ML UDC MM SCH ×2 (09:35→21:27)
[2019-06-12] MEDS: HEPARIN SODIUM, PORCINE 5000 UNITS/1 ML VIAL SQ SCH ×2 (09:43→21:30)
[2019-06-12] MEDS ORDERED: K PHOS NEUTRAL 250 MG TABLET PO ONE (11:30)
[2019-06-12] MEDS: METHADONE HCL 10 MG TABLET PO PRN ×2 (15:40→22:47)
--- NOTE | 2019-06-12 19:30 | NUR ---
RN OPENING NOTE RECEIVED PATIENT A/O X4 ON VENTILATOR AND IS ABLE TO MOUTH WORDS AND WRITE ON PAD. PATIENT ON THE MONITOR IS SINUS RHYTHM HR IN THE 80'S. HAS IV LINE ON THE RT FOREARM WITH NE RUNNING AT 75CC/HR. ALL SAFETY PRECAUTIONS APPLIED, WILL CONTINUE TO MONITOR PATIENT FOR NED.
--- NOTE | 2019-06-12 19:30 | NUR ---
SWEATBAND DECORATING MACHINE OPERATOR CLOSING NOTES PT IN STABLE CONDITION. NO ACUTE CHANGES TO PT CONDITION DURING MY SHIFT. ALL NEEDS MET. ABLE TO MAKE NEEDS KNOWN. PATIENT IS ON VENT, WITH SETTINGS TOLERATING WELL, NO DISTRESS NOTED. NO COMPLAINS OF SOB. KEPT CLEAN AND DRY. CALL LIGHT WITHIN REACH. SAFETY MAINTAINED. ENDORSED TO MATERIAL MOVERS NURSE REGARDING PATIENTS FOOT PAIN AND CHRONIC BACK PAIN. MATERIAL MOVERS WILL CONTINUE CARE.
[2019-06-12] MEDS: IV NS 0.9% 1,000 ML IV PRN (22:47)
[2019-06-12] MEDS: LEVOFLOXACIN 500 MG /D5W 100ML 500 MG in PREMIX 1 EA IV SCH (22:47)
[2019-06-13] VITALS: BP_SYST 124; BP_SYST 131; BP_DIAS 51; BP_DIAS 58
[2019-06-13] MEDS: ZOLPIDEM TARTRATE 5 MG TABLET PO PRN (00:36)
[2019-06-13] MEDS: ALPRAZOLAM 1 MG TABLET PO PRN ×3 (03:07→20:12)
[2019-06-13] MEDS: IPRATROPIUM NEB FS 0.5 MG/2.5 ML AMPUL.NEB NEB SCH ×6 (03:37→23:35)
[2019-06-13] MEDS: ALBUTEROL HALF STRENGTH 1.25 MG/3 ML VIAL.NEB NEB SCH ×6 (03:37→23:35)
[2019-06-13 04:00] VITALS: BP 115/75
[2019-06-13] MEDS: METHADONE HCL 10 MG TABLET PO PRN ×3 (06:06→21:32)
[2019-06-13 06:47] LABS: CALCIUM, SERUM 9.2 mg/dL (8.5-10.1); CREATININE 1.5 mg/dL (0.6-1.3); POTASSIUM 3.6 mmol/L (3.5-5.1)
[2019-06-13 06:57] LABS: BASOPHILS % (AUTO) 0.3 % (0.0-2.0); HEMATOCRIT 26 % (33-45); HEMOGLOBIN 8.6 g/dL (11.5-14.8); LYMPHOCYTES # (AUTO) 0.7 /CMM (0.8-4.8); MEAN CORPUSCULAR HGB CONC 33 g/dl (31.0-36.0); MEAN CORPUSCULAR VOLUME 85 fL (82-100); MONOCYTES # (AUTO) 0.7 /CMM (0.1-1.30); MONOCYTES % (AUTO) 10.1 % (2.0-12.0); NEUTROPHILS % (AUTO) 75.6 % (43.0-81.0); PLATELET COUNT (AUTO) 206 /CMM (150-450); RED BLOOD CELL COUNT(AUTO) 3.12 MIL/uL (4.0-5.2); WHITE BLOOD COUNT (AUTO) 6.6 K/uL (4.3-11.0)
--- NOTE | 2019-06-13 07:20 | NUR ---
TOWER FOREMAN OPENING NOTES RECEIVED PATIENT IN BED, ALERT AND ORIENTED X4, ABLE TO MAKE NEEDS KNOWN. PATIENT IS ON MECHANICAL VENTILATOR, WITH SETTING ORDERED, TOLERATING WELL. NO S/S OF RESPIRATORY DISTRESS IS NOTED. O2 SAT AT 100%. PATIENT IS ABLE TO COMMUNICATE BY MOUTHING WORDS AND WRITING DOWN REQUESTS. VS WNL. IV ON RIGHT FOREARM IS INTACT, PATENT, AND FLUSHED. NO S/S OF INFECTION NOTED. SAFETY MAINTAINED, CALL LIGHT WITHIN REACH, WILL CONTINUE TO MONITOR
[2019-06-13] MEDS: BUDESONIDE RESPULE INH 0.5 MG/2 ML AMPUL.NEB IH SCH ×2 (07:29→20:03)
--- NOTE | 2019-06-13 07:41 | NUR ---
SENIOR ENGINEERING TEAM LEADER CLOSING NOTE PATIENT IN BED WITH NO SIGN OF ANY DISTRESS. TOLERATING VENT WELL. ENDORSED PATIENT TO MORNING SHIFT NURSED FOR NED.
[2019-06-13 08:00] VITALS: BP 102/69
[2019-06-13] MEDS: HEPARIN SODIUM, PORCINE 5000 UNITS/1 ML VIAL SQ SCH ×2 (08:33→20:13)
[2019-06-13] MEDS: CHOLECALCIFEROL 1,000 UNIT TABLET (VIT D3) PO SCH (08:34)
[2019-06-13] MEDS: ASCORBIC ACID 500 MG TABLET PO SCH (08:34)
[2019-06-13] MEDS: CHLORHEXIDINE GLUCONATE 15 ML UDC MM SCH ×2 (08:34→20:24)
[2019-06-13] MEDS: MULTIVITAMINS,THERAGRAN 1 UDTAB TABLET PO SCH (08:34)
[2019-06-13] MEDS: FAMOTIDINE (20 MG) 20 MG TABLET PO SCH (08:36)
[2019-06-13] MEDS: AMLODIPINE BESYLATE 2.5 MG TABLET PO SCH (08:36)
[2019-06-13] MEDS: PRAZOSIN HCL 1 MG CAPSULE PO SCH ×2 (08:36→20:12)
[2019-06-13] MEDS: PANTOPRAZOLE 40 MG TABLET.DR PO SCH (08:37)
[2019-06-13] MEDS: FERROUS SULFATE (325 MG) 325 MG/TAB TABLET PO SCH (08:37)
[2019-06-13] MEDS: ACETAMINOPHEN 325 MG TABLET PO PRN ×2 (10:36→23:30)
[2019-06-13 12:00] VITALS: BP 99/78
--- NOTE | 2019-06-13 12:00 | NUR ---
IV SITE ON RIGHT FOREARM IN DISLODGED AND INFILTRATED. REMOVED THE IV AND PLACED A NEW ONE IN RIGHT FOREARM. 20 GAUGE IV WAS PLACED FIRST TRY, INTACT, PATENT, AND FLUSHED WELL.
--- NOTE | 2019-06-13 13:00 | NUR ---
ROUNDED WITH DR ZARATE. ORDERED COLACE DAILY FOR CONSTIPATION. ORDERED PLACED WILL ADMINISTER WHEN VERIFIED BY PHARMACY
[2019-06-13] MEDS: DOCUSATE SODIUM 100 MG CAPSULE PO SCH (15:52)
[2019-06-13 16:00] VITALS: BP 104/64
--- NOTE | 2019-06-13 19:25 | NUR ---
BEADWORKER CLOSING NOTES PT REMAINED IN STABLE CONDITION DURING MY SHIFT. NO ACUTE CHANGES TO PATIENT CONDITION DURING MY SHIFT. ALL NEEDS MET. PAIN WAS BEING MANAGES WITH SCHEDULED XANAX AND METHADONE. ENDORSED TO WASH WORKER NURSE THAT THE PATIENT PREFERS TO TAKE XANAX AND METHADONE 1HR APART FOR BETTER MANAGEMENT OF CHRONIC PAIN. SUCTIONED PATIENT FREQUENTLY. NO S/S OF RESPIRATORY DISTRESS IS NOTED. SAFETY MAINTAINED, CALL LIGHT WITHIN REACH. ENDORSED TO WASH WORKER NURSE TO CONTINUE CARE
--- NOTE | 2019-06-13 19:51 | NUR ---
GOLD LEAF LABORER OPENING NOTE PATIENT IN BED WITH NO SIGN OF ANY DISTRESS. ON VENTILATOR TOLERATING WELL PATIENT IS ABLE TO MOUTH WORDS AND IS ABLE TO WRITE FOR COMMUNICATION. PATIENT ON THE MONITOR SHOWING SR IN THE 80'S AND IV ACCESS ON THE LT FOREARM #20G. BEDSIDE COMMODE IS NEXT TO BEDSIDE. ALL SAFETY PRECAUTIONS APPLIED. WILL CONTINUE TO MONITOR PATIENT FOR NED.
[2019-06-13 20:00] VITALS: BP 134/87
[2019-06-13] MEDS: LEVOFLOXACIN 500 MG /D5W 100ML 500 MG in PREMIX 1 EA IV SCH (22:30)
[2019-06-14] VITALS: BP 101/77
[2019-06-14] MEDS: ZOLPIDEM TARTRATE 5 MG TABLET PO PRN (00:55)
[2019-06-14] MEDS: METHADONE HCL 10 MG TABLET PO PRN ×3 (03:13→18:20)
[2019-06-14 04:00] VITALS: BP 107/70
[2019-06-14] MEDS: ALBUTEROL HALF STRENGTH 1.25 MG/3 ML VIAL.NEB NEB SCH ×5 (04:04→19:30)
[2019-06-14] MEDS: IPRATROPIUM NEB FS 0.5 MG/2.5 ML AMPUL.NEB NEB SCH ×5 (04:04→19:30)
[2019-06-14] MEDS: ALPRAZOLAM 1 MG TABLET PO PRN ×3 (06:33→20:16)
[2019-06-14 06:52] LABS: BASOPHILS % (AUTO) 0.4 % (0.0-2.0); EOSINOPHILS % (AUTO) 3.9 % (0.0-6.0); HEMATOCRIT 26 % (33-45); HEMOGLOBIN 8.3 g/dL (11.5-14.8); LYMPHOCYTES # (AUTO) 0.8 /CMM (0.8-4.8); LYMPHOCYTES % (AUTO) 17.4 % (20.0-44.0); MEAN CORPUSCULAR HGB CONC 33 g/dl (31.0-36.0); MEAN CORPUSCULAR VOLUME 85 fL (82-100); MONOCYTES # (AUTO) 0.4 /CMM (0.1-1.30); MONOCYTES % (AUTO) 8.7 % (2.0-12.0); NEUTROPHILS # (AUTO) 3.3 /CMM (1.8-8.9); NEUTROPHILS % (AUTO) 69.6 % (43.0-81.0); PLATELET COUNT (AUTO) 190 /CMM (150-450); RED BLOOD CELL COUNT(AUTO) 3.01 MIL/uL (4.0-5.2); WHITE BLOOD COUNT (AUTO) 4.8 K/uL (4.3-11.0)
[2019-06-14 07:17] LABS: CALCIUM, SERUM 8.5 mg/dL (8.5-10.1); CREATININE 1.2 mg/dL (0.6-1.3); POTASSIUM 3.3 mmol/L (3.5-5.1)
--- NOTE | 2019-06-14 07:35 | NUR ---
PSYCHOLOGIST EXPERIMENTAL CLOSING NOTE PATIENT IN BED WITH NO SIGN OF ANY DISTRESS. TOLERATING VENT. PATIENT ON THE MONITOR SHOWS SINUS RHYTHM. ALL SAFETY PRECAUTIONS APPLIED. ENDORSED PATIENT TO MORNING SHIFT NURSE FOR NED.
[2019-06-14] MEDS: BUDESONIDE RESPULE INH 0.5 MG/2 ML AMPUL.NEB IH SCH ×2 (07:41→19:30)
[2019-06-14 08:00] VITALS: BP 105/72
[2019-06-14] MEDS: ASCORBIC ACID 500 MG TABLET PO SCH (09:20)
[2019-06-14] MEDS: FAMOTIDINE (20 MG) 20 MG TABLET PO SCH (09:20)
[2019-06-14] MEDS: FERROUS SULFATE (325 MG) 325 MG/TAB TABLET PO SCH (09:20)
[2019-06-14] MEDS: CHLORHEXIDINE GLUCONATE 15 ML UDC MM SCH ×2 (09:20→20:36)
[2019-06-14] MEDS: PANTOPRAZOLE 40 MG TABLET.DR PO SCH (09:20)
[2019-06-14] MEDS: DOCUSATE SODIUM 100 MG CAPSULE PO SCH (09:20)
[2019-06-14] MEDS: CHOLECALCIFEROL 1,000 UNIT TABLET (VIT D3) PO SCH (09:21)
[2019-06-14] MEDS: MULTIVITAMINS,THERAGRAN 1 UDTAB TABLET PO SCH (09:21)
[2019-06-14] MEDS: PRAZOSIN HCL 1 MG CAPSULE PO SCH ×2 (09:21→20:33)
[2019-06-14] MEDS: AMLODIPINE BESYLATE 2.5 MG TABLET PO SCH (09:21)
[2019-06-14] MEDS: HEPARIN SODIUM, PORCINE 5000 UNITS/1 ML VIAL SQ SCH ×2 (09:27→20:33)
[2019-06-14] MEDS ORDERED: Potassium Chloride 40 MEQ in IV NS 0.9% 1,000 ML IV PRN (11:06)
[2019-06-14] MEDS ORDERED: LEVO500T2 PO (11:22)
[2019-06-14 12:00] VITALS: BP 118/79
[2019-06-14 16:00] VITALS: BP 127/78
[2019-06-14] MEDS ORDERED: POTASSIUM CHLORIDE 20 MEQ POWDER PACKET PO ONE (16:30)
--- NOTE | 2019-06-14 20:15 | NUR ---
RT NOTE PT RECEIVED TRACHED ON MECHANICAL VENTILATION. AWAKE/ALERT. AMBU BAG/BACK UP TRACH @ BEDSIDE. PT REFUSED TX AT THIS TIME. SX DONE, TRACH SECURED AND PATENT. ALARMS ON AND AUDIBLE. NO SOB NOTED. CONT. PULSE OX CONNECTED. Addendum: 06/14/19 at 2021 by REYNALDO SCHUSTER RT Amended: Links added.
[2019-06-14] MEDS: LEVOFLOXACIN (500MG) 500 MG TABLET PO SCH ×2 (20:16→20:36)
[2019-06-14 20:33] VITALS: BP 132/77
--- NOTE | 2019-06-14 20:36 | NUR ---
RN NOTES RECEIVED PATIENT AWAKE IN BED WITH NO RESPIRATORY DISTRESS OR SHORTNESS OF BREATH. BREATHING EVEN AND UNLABORED. NO COMPLAINT OF PAIN OR DISCOMFORT. ALERT AND ORIENTED, NON VERBAL BUT ABLE TO MOUTHWORDS AND WRITE NEEDS. VENT SETTING WELL TOLERATED. REFUSED ALL 2099 AND 1999 MEDICATIONS, BUT REQUESTED FOR XANAX. LEAD EMBEDDED SOFTWARE ENGINEER BY AMBULANCE WITH 2 COMMERCIAL FINANCE ANALYST VIA [employer] AT 2039 FOR [facility]. VITAL SIGNS STABLE. PATIENT IS AFEBRILE.
== END 2019-06-14 20:40 | DRG 208 ==
LOC: TELE1 23:08
PROVIDERS: ADMIT Nurse Practitioner Acute Care; ATTEND Family Medicine
PROC: 5A1945Z Respiratory Ventilation, 24-96 Consecutive Hours (ICD-10-PCS; principal; 2019-06-10)
DX: J95.851 Ventilator associated pneumonia (principal); N17.0 Acute kidney failure with tubular necrosis; J15.6 Pneumonia due to other Gram-negative bacteria; J96.22 Acute and chronic respiratory failure with hypercapnia; J96.21 Acute and chronic respiratory failure with hypoxia; Z99.11 Dependence on respirator [ventilator] status; J44.0 Chronic obstructive pulmonary disease with (acute) lower respiratory infection; E66.2 Morbid (severe) obesity with alveolar hypoventilation; Y83.3 Surgical operation with formation of external stoma as the cause of abnormal reaction of the patient, or of later complication, without mention of misadventure at the time of the procedure; Y72.8 Miscellaneous otorhinolaryngological devices associated with adverse incidents, not elsewhere classified; Z85.3 Personal history of malignant neoplasm of breast; F41.9 Anxiety disorder, unspecified; F32.9 Major depressive disorder, single episode, unspecified; E87.6 Hypokalemia; E86.9 Volume depletion, unspecified; Z87.891 Personal history of nicotine dependence; G89.4 Chronic pain syndrome; D63.8 Anemia in other chronic diseases classified elsewhere; N18.9 Chronic kidney disease, unspecified; I12.9 Hypertensive chronic kidney disease with stage 1 through stage 4 chronic kidney disease, or unspecified chronic kidney disease; Z68.35 Body mass index [BMI] 35.0-35.9, adult; Z93.0 Tracheostomy status; K27.9 Peptic ulcer, site unspecified, unspecified as acute or chronic, without hemorrhage or perforation; Y92.89 Other specified places as the place of occurrence of the external cause
CPT/HCPCS: 31720; 36415; 36600; 71045-TC; 80048-TC; 80053-TC; 80061-TC; 83735-TC; 84100-TC; 85025-TC; 94003-TC; 94760-TC; 94762-TC; 97116-TC; 97530-TC; A4216; A4623; A7526; G0378; J1644; J1956; J3480; J7030; J7070